=== PATIENT | female | born 1960 | race Hispanic/Latino ===

== ENCOUNTER 2017-10-05 05:24 | Inpatient (IN) | payer SELFPAY ==
--- NOTE | 2017-10-05 06:29 | Emergency Department Report ---
ED Neuro Deficit HPI - General Chief Complaint: Weakness Stated Complaint: L SIDE WEAKNESS Time Seen by Provider: 10/05/17 06:23 Source: patient Mode of arrival: Stretcher Limitations: No Limitations - History of Present Illness Initial Comments: I was informed of this patient's presentation at 06:17. I called a code stroke. Radiologist report occurred at 6:45. This is a 57 year old apparently bipolar patient who appears to be somewhat agitated and paranoid. She does not want to answer routine questions about her history of the present illness. She strangely acts very defensive regarding questions about her past medical history as well. In any case he is an inpatient at [facility]. [facility] she [facility]. She states that she has been in the hospital several times but is very reluctant to tell me why. She states that she has a history of "vasculitis". 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 She does not know what type of vasculitis she has. She gets very annoyed when she is asked for detail about her present illness or past medical history. I think some of the root cause may be a bipolar disorder with paranoid features. However, I do not know her exact psychiatric diagnosis or the reason why she is an inpatient at [facility]. The history that I have been able to obtain is that the patient woke up with " my left side drawing up". She describes facial drooping and left-sided weakness. She also states that she had pain in the back of her neck which radiated up to her head. She is not complaining of headache now. The patient woke up with said symptoms. She states that an hour later she was able to get the attention of a nurse and looked at her watch and found it to be 3 AM. However she is certain that she had her symptoms for one hour she states because she was checked every 15 minutes 4 times prior after her symptoms had already begun. The patient states "I was able to walk in here". -: During the night Location: left face, left arm, left leg Presenting Symptoms: Present: Weak/Paralyzed One Side History of same: No (very poor historian states "3 silent strokes") Place: other ([facility]) Severity: moderate Quality: weak Improves With: none Worsens With: none On Anticoagulants: No Context: other Associated Symptoms: denies other symptoms, headaches (neck pain posterior) Treatments Prior to Arrival: none - Related Data Allergies/Adverse Reactions: Allergies Allergy/AdvReac Type Severity Reaction Status Date / Time ketorolac Allergy Unknown Verified 10/05/17 06:13 ED Review of Systems ROS: Stated complaint: L SIDE WEAKNESS Other details as noted in HPI Constitutional: denies: chills, fever Eyes: denies: eye pain, eye discharge, vision change ENT: denies: ear pain, throat pain Respiratory: denies: cough, shortness of breath, wheezing Cardiovascular: denies: chest pain, palpitations Endocrine: no symptoms reported Gastrointestinal: denies: abdominal pain, nausea, diarrhea Genitourinary: denies: urgency, dysuria, discharge Musculoskeletal: as per HPI. denies: back pain, joint swelling, arthralgia Skin: denies: rash, lesions Neurological: as per HPI, weakness. denies: paresthesias, abnormal gait Psychiatric: as per HPI (patient is very guarded concerning her psychiatric diagnosis) Hematological/Lymphatic: denies: easy bleeding, easy bruising ED Past Medical Hx - Past Medical History Previous Medical History?: Yes Hx CVA: Yes Hx COPD: Yes Additional medical history: Vasculitis - Surgical History Past Surgical History?: Yes Additional Surgical History: Cyst removal from chest - Social History Smoking Status: Former Smoker ED Neuro Physical Exam - General Limitations: Other (lack of cooperation) General appearance: alert, in no apparent distress Suspected Stroke: Yes (possible) - Head Head exam: Present: atraumatic, normocephalic - Eye Eye exam: Present: normal appearance, PERRL, EOMI. Absent: scleral icterus - ENT ENT exam: Present: mucous membranes moist, other (no facial asymmetry) - Neck Neck exam: Present: normal inspection. Absent: tenderness, meningismus - Respiratory Respiratory exam: Present: normal lung sounds bilaterally. Absent: respiratory distress - Cardiovascular Cardiovascular Exam: Present: regular rate, normal rhythm. Absent: systolic murmur, diastolic murmur, rubs, gallop - GI/Abdominal GI/Abdominal exam: Present: soft, normal bowel sounds. Absent: distended, tenderness, guarding, rebound, rigid - Extremities Exam Extremities exam: Present: normal inspection, normal capillary refill. Absent: calf tenderness - Back Exam Back exam: Present: normal inspection. Absent: CVA tenderness (R), CVA tenderness (L) - Neurological Exam Neurological exam: Present: alert, oriented X3, CN II-XII intact, motor sensory deficit (left sided drift. However see note and course) - NIHSS Assessment Interval: Baseline 1a. Level of Consciousness: alert 1b. LOC Questions: answers correctly 1c. LOC Commands: performs tasks correctly 2. Best Gaze: normal 3. Visual: no visual loss 4. Facial Palsy: normal symmetrical movement 5b. Motor Arm Right: no drift 5a. Motor Arm Left: drift 6a. Motor Leg Left: drift 6b. Motor Leg Right: no drift 7. Limb Ataxia: absent 8. Sensory: normal 9. Best Language: no aphasia 10. Dysarthria: normal 11. Extinction/Inattention: no abnormality Total Score: 2 Stroke Severity: Minor Stroke - Psychiatric Psychiatric exam: Present: depressed, agitated (angry) - Skin Skin exam: Present: warm, dry, intact, normal color. Absent: rash ED Course Vital Signs 10/05/17 10/05/17 10/05/17 05:38 05:45 05:50 Temperature 98.7 F Pulse Rate 89 Respiratory 17 Rate Blood Pressure 166/94 175/116 O2 Sat by Pulse 93 91 95 Oximetry 10/05/17 10/05/17 10/05/17 06:00 06:15 06:36 Temperature Pulse Rate Respiratory Rate Blood Pressure 166/94 159/92 159/92 O2 Sat by Pulse 89 94 93 Oximetry 10/05/17 10/05/17 10/05/17 06:52 07:00 07:02 Temperature Pulse Rate 62 Respiratory Rate Blood Pressure 166/94 147/93 O2 Sat by Pulse 96 95 Oximetry 10/05/17 07:15 Temperature Pulse Rate 82 Respiratory 17 Rate Blood Pressure 150/90 O2 Sat by Pulse 98 Oximetry - Reevaluation(s) Reevaluation #1: I did follow the patient to CT. I observed her motor strength getting up and off the gurney. She moved her left side perfectly well as far as I could observe with no apparent motor asymmetry. However, when she returned to the emergency department and I performed the neurological exam she very poorly cooperated and appeared to have some possible left-sided weakness. However on test of drift the patient wouldn't hold her left leg up in extension only with very good tone and really no definite lower extremity drift was present. On upper extremity testing she was poorly cooperative and I couldn't rule out drift. Therefore her NIHSS is 1 or 2. Her neurological picture is complicated by her psychiatric disorder and perhaps a "vasculitis". She is more than 4-1/2 hours after x-ray interpretation of her CT which was normal per radiologist. She is in eligible for TPA due to the variability in her symptoms and the fact that she is outside the window of opportunity. Not withstanding this I have ordered urgent MRI studies. Differential diagnosis includes vasculitis, stroke and psychogenic neurological syndrome. Further evaluation per hospitalist staff. 10/05/17 07:56 - Lab Data Result diagrams: 10/05/17 06:40 10/05/17 06:40 Lab Results 10/05/17 10/05/17 10/05/17 Range/Units 06:40 06:40 06:40 WBC 8.4 (4.5-11.0) K/mm3 RBC 4.68 (3.65-5.03) M/mm3 Hgb 16.1 H (10.1-14.3) gm/dl Hct 48.7 H (30.3-42.9) % MCV 104 H (79-97) fl MCH 34 H (28-32) pg MCHC 33 (30-34) % RDW 16.2 H (13.2-15.2) % Plt Count 137 L (140-440) K/mm3 PT 12.7 (12.2-14.9) Sec. INR 0.91 (0.87-1.13) APTT 38.4 H (24.2-36.6) Sec. Thrombin Time 15.3 (15.1-19.6) Sec. Sodium 141 (137-145) mmol/L Potassium 4.0 (3.6-5.0) mmol/L Chloride 99.2 (98-107) mmol/L Carbon Dioxide 27 (22-30) mmol/L Anion Gap 19 mmol/L BUN 12 (7-17) mg/dL Creatinine 0.6 L (0.7-1.2) mg/dL Estimated GFR > 60 ml/min BUN/Creatinine Ratio 20 % Glucose 107 H (65-100) mg/dL POC Glucose (70-105) Calcium 9.2 (8.4-10.2) mg/dL Total Creatine Kinase 45 (30-135) units/L CK-MB (CK-2) 1.9 (0.0-4.0) ng/mL CK-MB (CK-2) Rel Index 4.2 H (0-4) Troponin T < 0.010 (0.00-0.029) ng/mL Plasma/Serum Alcohol (0-0.07) % 10/05/17 10/05/17 Range/Units 06:40 07:01 WBC (4.5-11.0) K/mm3 RBC (3.65-5.03) M/mm3 Hgb (10.1-14.3) gm/dl Hct (30.3-42.9) % MCV (79-97) fl MCH (28-32) pg MCHC (30-34) % RDW (13.2-15.2) % Plt Count (140-440) K/mm3 PT (12.2-14.9) Sec. INR (0.87-1.13) APTT (24.2-36.6) Sec. Thrombin Time (15.1-19.6) Sec. Sodium (137-145) mmol/L Potassium (3.6-5.0) mmol/L Chloride (98-107) mmol/L Carbon Dioxide (22-30) mmol/L Anion Gap mmol/L BUN (7-17) mg/dL Creatinine (0.7-1.2) mg/dL Estimated GFR ml/min BUN/Creatinine Ratio % Glucose (65-100) mg/dL POC Glucose 92 (70-105) Calcium (8.4-10.2) mg/dL Total Creatine Kinase (30-135) units/L CK-MB (CK-2) (0.0-4.0) ng/mL CK-MB (CK-2) Rel Index (0-4) Troponin T (0.00-0.029) ng/mL Plasma/Serum Alcohol < 0.01 (0-0.07) % - EKG Data -: EKG Interpreted by Al EKG shows normal: sinus rhythm, axis, intervals, QRS complexes, ST-T waves Rate: normal Interpretation: no acute changes, other - Radiology Data Radiology results: report reviewed (no acute findings) - Thrombolytic Inclusion/Exclusion Thrombolytic Exclusion Criteria: Symptom Onset > 3 Hours (greater than 4.5 hours ) Critical care attestation.: If time is entered above; I have spent that time in minutes in the direct care of this critically ill patient, excluding procedure time. ED Disposition Clinical Impression: Focal neurological deficit, Neck pain, Psychiatric disorder Disposition: OP ADMIT IP TO THIS HOSP Is pt being admited?: Yes Does the pt Need Aspirin: Yes Condition: Stable Referrals: JULIO BREEN MD [Primary Care Provider] - 3-5 Days Time of Disposition: 08:04
--- NOTE | 2017-10-05 06:51 | Cat Scan Report ---
FINAL REPORT EXAM: CT HEAD/BRAIN WO CON HISTORY: Stroke symptoms TECHNIQUE: CT imaging acquired through the head without intravenous contrast. Transaxial reformations are provided. PRIORS: None. FINDINGS: The ventricles, cisterns and sulci are within normal limits. No intraparenchymal or extra-axial mass, hemorrhage, or mass effect. Peña and white-matter differentiation is within normal limits for patient age. Normal spherical shape of the globes. There is mucosal thickening within the sphenoid sinuses. No other significant abnormality involving the imaged portions of the paranasal sinuses and mastoid air cells. No skull or facial fracture visualized. IMPRESSION: No acute intracranial abnormality. Findings were conveyed to Dr. Cuadra at 0544 central Time on 10/05/2017 immediately following the examination.
[2017-10-05 06:53] LABS: Hematocrit 48.7 % (30.3-42.9); Hemoglobin 16.1 gm/dl (10.1-14.3); Mean Corpuscular HGB Conc 33 % (30-34); Mean Corpuscular Hemoglobin 34 pg (28-32); Mean Corpuscular Volume 104 fl (79-97); Platelet Count 137 K/mm3 (140-440); Red Blood Count 4.68 M/mm3 (3.65-5.03); Red Cell Distribution Width 16.2 % (13.2-15.2)
[2017-10-05 07:18] LABS: INR 0.91 (0.87-1.13)
[2017-10-05 07:19] LABS: Partial Thromboplastin Time 38.4 Sec. (24.2-36.6)
[2017-10-05 07:23] LABS: Creatine Kinase MB 1.9 ng/mL (0.0-4.0)
[2017-10-05 07:24] LABS: BUN/Creatinine Ratio 20; Blood Urea Nitrogen 12 mg/dL (7-17); Calcium 9.2 mg/dL (8.4-10.2); Hemolysis Index 9
[2017-10-05 07:26] LABS: Thrombin Time 15.3 Sec. (15.1-19.6)
[2017-10-05 07:50] LABS: Alanine Aminotransferase 60 units/L (7-56)
[2017-10-05 07:51] LABS: Bilirubin,Direct < 0.2 mg/dL (0-0.2)
[2017-10-05 08:02] LABS: Anisocytosis 1+; Band Neutrophils # (Manual) 0.1 K/mm3; Basophils % (Manual) 0 % (0.0-1.8); Eosinophils % (Manual) 0 % (0.0-4.3); Platelet Estimate Consistent w Auto; Total Cells Counted 100
[2017-10-05] MEDS ORDERED: ATIVAN IV ONE (08:02)
[2017-10-05] MEDS ORDERED: MILK OF MAGNESIA PO PRN (08:52)
[2017-10-05] MEDS ORDERED: PHENERGAN PR PRN (08:52)
[2017-10-05] MEDS ORDERED: REGLAN PO PRN (08:52)
[2017-10-05] MEDS ORDERED: ZOFRAN IV PRN (08:52)
[2017-10-05] MEDS ORDERED: SODIUM CHLORIDE FLUSH SYRINGE 10 ML IV PRN (08:52)
[2017-10-05] MEDS ORDERED: TYLENOL PO PRN (08:52)
[2017-10-05] MEDS ORDERED: DULCOLAX PR PRN (08:52)
--- NOTE | 2017-10-05 08:57 | History and Physical Report ---
History of Present Illness Date of examination: 10/05/17 Chief complaint: Stroke like symptoms History of present illness: This is a 57 y/o female with h/o alcohol abuse, depression and anxiety presented with ER from outside psych facility with c/o leftsided weakness and elevated BP. According to the family patient was recently admitted to [facility] for suicidal ideation and alcohol abuse. She was treated there and medically cleared to transfer to a psych facility just yesterday. Around 3 am she c/o left sided weakness, and she sent to [facility] for possible stroke eval. patient appears very anxious and depressed during the encounter and states she can't move her lower extremities. Also c/o left sided weakness but was able to lift her left hand but not the left leg. her speech was fluent but very poor historian. States she has been very depressed since her on 31 december last year. She has been unemployed since 2014 because of her "medical illness". She was drinking heavily before going to [facility] and reprted to call her sister to say 'Good-bye". In the ER her presenting BP 166/94, CT head showed no acute process. She denies any chest pain or SOB. She will be admitted for further evaluation and management. Past medical History: h/o TIA/CVA, HTN, alcohol abuse, anxiety/depression Past surgical History: None Social History: Lives alone, + drinking and denies any elicit drug abuse. Family History: Significant for HTN Review of System: Constitutional: no fever, no chills, no weight loss Ears, eyes, nose, mouth and throat: no nasal congestion, no nasal discharge, no sinus pressure, no vision change, no red eye. Neck: No neck pain or rigidity. Cardiovascular: No chest pain, no orthopnea, no palpitations, no leg swelling Respiratory: No shortness of breath, no cough, no congestion, no wheezing Gastrointestinal: no abdominal pain, no nausea, no vomiting Genitourinary : no dysuria, no hematuria Musculoskeletal: no joint swelling or muscle ache Integumentary: no rash, no pruritis Neurological: + parathesias and + numbness on b/l LE, no tingling Endocrine: no cold or heat intolerance, no polyuria or polydipsia Hematologic/Lymphatic: no easy bruising, no easy bleeding, no gland swelling Allergic/Immunologic: no urticaria, no angioedema. Medications and Allergies Allergies Allergy/AdvReac Type Severity Reaction Status Date / Time ketorolac Allergy Unknown Verified 10/05/17 06:13 Exam - Physical Exam Narrative exam: GENERAL: well-developed obese WF lying on bed appeared to be in mild discomfort , anxious, with tearful eyes. HEENT: Normocephalic. Atraumatic. No conjunctival congestion or icterus. Patient has moist mucous membranes. NECK: Supple. Trachea midline. CHEST/LUNGS: Clear to auscultated bilaterally, breathing nonlabored. No wheezes crackles or rhonchi. HEART/CARDIOVASCULAR: Regular in rate and rhythm. S1 and S2 positive. ABDOMEN: Abdomen is soft, nontender. Patient has normal bowel sounds. SKIN: There is no rash. Warm and dry. NEURO: Follows command. left UE weakness, B/L LE weakness with intact reflex MUSCULOSKELETAL: No joint effusion or tenderness. EXTRIMITY: No edema, no cyanosis or clubbing. PSYCH: depressed. - Constitutional Vitals: Temp Pulse Resp BP Pulse Ox 97.7 F 79 15 170/95 97 10/05/17 07:42 10/05/17 07:42 10/05/17 07:42 10/05/17 07:42 10/05/17 07:42 Results - Labs CBC & Chem 7: 10/05/17 06:40 10/05/17 06:40 Labs: Abnormal lab results 10/05/17 10/05/17 10/05/17 Range/Units 06:40 06:40 06:40 Hgb 16.1 H (10.1-14.3) gm/dl Hct 48.7 H (30.3-42.9) % MCV 104 H (79-97) fl MCH 34 H (28-32) pg RDW 16.2 H (13.2-15.2) % Plt Count 137 L (140-440) K/mm3 Lymphocytes % (Manual) 10.0 L (13.4-35.0) % Monocytes % (Manual) 19.0 H (0.0-7.3) % Lymphocytes # (Manual) 0.8 L (1.2-5.4) K/mm3 Monocytes # (Manual) 1.6 H (0.0-0.8) K/mm3 APTT 38.4 H (24.2-36.6) Sec. Creatinine 0.6 L (0.7-1.2) mg/dL Glucose 107 H (65-100) mg/dL AST (5-40) units/L ALT (7-56) units/L CK-MB (CK-2) Rel Index 4.2 H (0-4) 10/05/17 Range/Units 06:40 Hgb (10.1-14.3) gm/dl Hct (30.3-42.9) % MCV (79-97) fl MCH (28-32) pg RDW (13.2-15.2) % Plt Count (140-440) K/mm3 Lymphocytes % (Manual) (13.4-35.0) % Monocytes % (Manual) (0.0-7.3) % Lymphocytes # (Manual) (1.2-5.4) K/mm3 Monocytes # (Manual) (0.0-0.8) K/mm3 APTT (24.2-36.6) Sec. Creatinine (0.7-1.2) mg/dL Glucose (65-100) mg/dL AST 61 H (5-40) units/L ALT 60 H (7-56) units/L CK-MB (CK-2) Rel Index (0-4) - Imaging and Cardiology CT Scan - head: report reviewed (no acute intracranial process) Assessment and Plan Possible acute CVA vs TIA - - We will admit the patient to remote telemetry - We'll place on aspirin and statin, will consult neurology - CT scan of the head obtained in the ER and shows no acute process - We will get MRI of the head, carotid Doppler, 2-D echocardiogram - We will also get hemoglobin A1c level and fasting lipid panel - Allow permissive hypertension, will hold BP meds if patient is taking any at home - Consult PTOT and speech therapist - Keep the patient nothing by mouth for now, cardiac diet if passed swallow study - IV hydration with D5 normal saline, - monitor blood glucose and place on sliding scale of insulin, as patient will be nothing by mouth and on D5 - Further management will be based on pending lab results and imaging studies Depression and anxiety - consult psych, place 1013 with sitter h/o Old CVA - cont aspirin and statin HTN, uncontrolled - will allow permissive HTN - resume BP meds from tomorrow - request medical records from [facility] Alcohol abuse - monitor for withdrawal, last drink was about a week ago - We'll place on GI prophylaxis to avoid stress ulcer - Place on DVT prophylaxis
[2017-10-05] MEDS ORDERED: NACL 0.9% 1000 ML 1,000 ML IV SCH (09:00)
--- NOTE | 2017-10-05 09:26 | XRay Report ---
AP CHEST: HISTORY: Hypertension AP view of the chest demonstrates a normal mediastinal and cardiac contour with clear lungs and normal bony and soft tissue structures. IMPRESSION: Unremarkable AP chest.
[2017-10-05] MEDS: PEPCID PO SCH ×2 (09:38→22:58)
--- NOTE | 2017-10-05 11:44 | Magnetic Resonance Report ---
MRI OF THE BRAIN WITHOUT CONTRAST: HISTORY: Left sided weakness, stroke PROCEDURE: Multiplanar, multisequence MR imaging of the brain without IV contrast was performed. FINDINGS: Compared to the CT head dated 10/05/17. There is no evidence for diffusion restriction on today's exam. A chronic cortical infarct in the right posterior frontal lobe measures 3.1 x 1.1 cm in axial plane. There are 2 focal chronic infarcts measuring less than 1 cm in the inferior left cerebellum. There is also a chronic focal infarct measuring less than 1 cm in the inferior right cerebellum. Mild to moderate nonspecific chronic white matter changes are noted bilaterally. There is no evidence for hemorrhage, mass or extra-axial fluid collection. The midline structures are central. The basal cisterns are patent. Normal ventricular size. The orbital cavities and sella turcica demonstrate no abnormality. There is moderate mucosal thickening in the right sphenoid sinus. The remaining visualized paranasal sinuses and mastoid air cells are well aerated. IMPRESSION: No acute intracranial process is identified. Chronic infarcts as described above. Chronic white matter changes. Chronic right sphenoid sinusitis.
--- NOTE | 2017-10-05 11:45 | Magnetic Resonance Report ---
MRA HEAD WITHOUT CONTRAST HISTORY: Left sided weakness, stroke. [id number] imaging with MIP reformations of the quinault of García is submitted. NASCET criteria were utilized. The arteries appear widely patent and free of hemodynamically significant stenosis, aneurysm or dissection. IMPRESSION: Unremarkable MRA head.
[2017-10-05 14:09] LABS: Bacteria,Urine 1+ /HPF (Negative); Bilirubin,Urine NEG (Negative); Blood,Urine NEG (Negative); Color,Urine Yellow (Yellow); Mucus,Urine FEW /HPF; Urobilinogen,Urine < 2.0 mg/dL (<2.0)
[2017-10-05 14:16] LABS: Amphetamine Screen,Urine PRESUMPTIVE NEGATIVE; Cannabinoid Screen,Urine PRESUMPTIVE NEGATIVE; Cocaine Screen,Urine PRESUMPTIVE NEGATIVE; Methadone Screen,Urine PRESUMPTIVE NEGATIVE; Opiate Screen,Urine PRESUMPTIVE NEGATIVE
[2017-10-05 14:37] LABS: Benzodiazepines Screen,Urine PRESUMPTIVE POSITIVE
[2017-10-06 07:26] LABS: Chol/HDL Ratio 5.36 %
--- NOTE | 2017-10-06 10:11 | History and Physical Report ---
History of Present Illness Date of examination: 10/06/17 Date of admission: 10/05/17 08:52 FOCUSED NEUROLOGY CONSULTATION NOTE CC: I am asked to see this 57 F for possible stroke which occured yesterday. HPI: According to ED notes, the patient was admitted yesterday from [facility] yesterday, but in talking with Dr Marroquin just now who has spoken with the family, the patient was in [facility] for suicidal ideation that she told her sister about, having awoken at 3 am with her "left side drawing up" and a "left facial droop" She carries a diagnosis of Depression, but little else is known about her including her official psychiatric diagnoses or meds. She has apparently been admitted to [facility] on a number of occasions in the past. From the ED note here, the patient stated that she awoke at "3:00 AM" with the left sided sx as above as well as a "pain in the back of my neck that went up into my head", "finally got the attention of a nurse after an hour" and was transferred here. In the ED she was extremely reluctant and defensive about relating much about her history but did relate that she had had "three strokes in the past"... "due to chemo Rx" ...had "vasculits"... and stated "I walked in here". Initial NIHSS was 2, she was hypertensive, a head CT was negative for any acute changes (images reviewed) and a head MRI showed some volume loss, a remote infarct in the posterior right frontal lobe, and remote small infarcts in both cerebellar hemispheres and another one in the right inferior cerebellar hemisphere. Her neuro exam became equivocal after her imaging studies with repeat NIHSS of 1 - 2. With the low scores, equivocal findings, and being outside a 4.5 hr window since onset of sx, she was not felt to be a tPA candidate. She denied any headache on admission. ROS: she denied any vertigo or dizziness, current headache, unilat visual sx, double vision, of difficulty with speech. she denied any falls. An 11 point ROS was negative. NEURO EXAM: MS: She is found in an ED hallway bed space 11, right next to a room with a teenager screaming and yelling and throwing things, surrounded by security personnel somewhat tremulous, asking for her sister to be called. She is alert , cooperative, and her speech is low volume, somewhat tremulous, but fluent and without errors. She follows commands well at this time. CN II - 12 nl. Full EOM without nystagmus, pupils both 4 mm diam and reactive to bright light stim MOT: nl strength all four extrem prox and distally 5/5 to resistance testing SENS: denies loss to touch all four extrem and face bilat CEREB: fnf nl bilat DTRs: 1+ and symm prox and distally arms and legs, both great toes downgoing to plantar stim bilat. GAIT: not tested due to fall risk DX IMP: 1. Hx mild/minimal left sided weakness secondary to ? some metabolic insult ( medication excess?) "smoking out" the sx of the remote right frontal lobe infarct vs TIA. NO new stroke. 2. Multiple remote cerebral infarcts by head MRI 3. Psychiatric diagnosis - depression/ anxiety - unclear, with unknown meds at this time 4. HTN RECC: 1. Get "Official" psych dxs from [facility] + list of her current meds 2. Get carotid ultsound and Echo to complete TIA work up. 3. Go from there. Call as needed. Discussed with Dr. Cara Leblanc MD Medications and Allergies Allergies Allergy/AdvReac Type Severity Reaction Status Date / Time ketorolac Allergy Unknown Verified 10/05/17 06:13 Active Meds: Active Medications Acetaminophen (Tylenol) 650 mg PO Q4H PRN PRN Reason: Pain, Mild (1-3) Bisacodyl (Dulcolax) 10 mg AR QDAY PRN PRN Reason: Constipation Famotidine (Pepcid) 20 mg PO BID FRANKY Last Admin: 10/05/17 22:58 Dose: Not Given Sodium Chloride (Nacl 0.9% 1000 Ml) 1,000 mls @ 75 mls/hr IV DIRECT FRANKY Magnesium Hydroxide (Milk Of Magnesia) 30 ml PO Q4H PRN PRN Reason: Constipation Metoclopramide HCl (Reglan) 10 mg PO Q6H PRN PRN Reason: Nausea And Vomiting Ondansetron HCl (Zofran) 4 mg IV Q8H PRN PRN Reason: N/V unrelieved by Reglan Promethazine HCl (Phenergan) 25 mg AR Q6H PRN PRN Reason: Nausea And Vomiting Sodium Chloride (Sodium Chloride Flush Syringe 10 Ml) 10 ml IV PRN PRN PRN Reason: LINE FLUSH Physical Examination - Vital Signs Vital Signs: Vital Signs Pulse Ox 93 10/05/17 05:38 Results - Laboratory Findings CBC and BMP: 10/05/17 06:40 10/05/17 06:40 Abnormal Lab Findings: Abnormal Labs 10/05/17 10/05/17 10/05/17 06:40 06:40 06:40 Hgb 16.1 H Hct 48.7 H MCV 104 H MCH 34 H RDW 16.2 H Plt Count 137 L Lymphocytes % (Manual) 10.0 L Monocytes % (Manual) 19.0 H Lymphocytes # (Manual) 0.8 L Monocytes # (Manual) 1.6 H APTT 38.4 H Creatinine 0.6 L Glucose 107 H AST ALT CK-MB (CK-2) Rel Index 4.2 H Cholesterol LDL Cholesterol Direct HDL Cholesterol 10/05/17 10/06/17 06:40 06:37 Hgb Hct MCV MCH RDW Plt Count Lymphocytes % (Manual) Monocytes % (Manual) Lymphocytes # (Manual) Monocytes # (Manual) APTT Creatinine Glucose AST 61 H ALT 60 H CK-MB (CK-2) Rel Index Cholesterol 204 H LDL Cholesterol Direct 144 H HDL Cholesterol 38 L
[2017-10-06] MEDS: BABY ASPIRIN PO SCH (12:23)
[2017-10-06] MEDS: COREG PO SCH ×2 (12:23→22:22)
[2017-10-06] MEDS: PEPCID PO SCH ×2 (12:23→22:23)
[2017-10-06] MEDS: NORVASC PO SCH (12:23)
--- NOTE | 2017-10-06 14:06 | Progress Note ---
Assessment and Plan Possible TIA - -cont to monitor at remote telemetry - on aspirin and statin, consulted neurology - CT scan of the head obtained in the ER and shows no acute process - no acute cva on MRI of the head, will follow carotid Doppler, 2-D echocardiogram - Consulted PTOT and speech therapist - on cardiac diet h/o Depression and anxiety - consulted psych, placed on 1013 with sitter - Started Prozac 20 mg PO Daily for depression. HTN, uncontrolled - Place on norvasc, coreg and as needed hydralazine iv - requested medical records from [facility] Alcohol abuse - monitor for withdrawal, last drink was about a week ago - place on librium per protocol h/o proor CVA - cont aspirin, statin - We'll place on GI prophylaxis to avoid stress ulcer - Place on DVT prophylaxis Brief history: This is a 57-year-old obese white female with a history of anxiety depression and alcohol abuse sent from outside psych facility with strokelike symptoms ( left-sided weakness ) and uncontrolled blood pressure. Radiological test: CT head without contrast: No acute intracranial process MRI/MRA of the head: No acute intracranial process. A chronic cortical infarct in the right posterior frontal lobe, no focal chronic infarct in the inferior left cerebellum, chronic focal infarct in the inferior right cerebellum. Patient also has chronic white matter changes and chronic right spinal sinusitis. Hospitalist Physical exam: GENERAL: well-developed and obese white female lying on bed appeared to be in no discomfort. HEENT: Normocephalic. Atraumatic. No conjunctival congestion or icterus. Patient has moist mucous membranes. NECK: Supple. Trachea midline. CHEST/LUNGS: Clear to auscultated bilaterally, breathing nonlabored. No wheezes crackles or rhonchi. HEART/CARDIOVASCULAR: Regular in rate and rhythm. S1 and S2 positive. ABDOMEN: Abdomen is soft, nontender. Patient has normal bowel sounds. SKIN: There is no rash. Warm and dry. NEURO: No focal motor deficit. Follows command. MUSCULOSKELETAL: No joint effusion or tenderness. EXTRIMITY: No edema, no cyanosis or clubbing. PSYCH: Cooperative. Subjective Date of service: 10/06/17 Interval history: Patient seen and examined. Medical records and medication list reviewed. No acute event overnight noted by the RN. Patient denies any chest pain or difficulty breathing. Patient is tolerating diet. Discussed plan of care at bedside with patient and patient's son by phone Objective - Constitutional Vitals: Vital Signs - 12hr 10/06/17 10/06/17 09:30 12:00 Temperature 98.7 F Pulse Rate 82 86 Respiratory 14 16 Rate Blood Pressure 145/99 148/92 [Left] O2 Sat by Pulse 94 94 Oximetry - Labs CBC & Chem 7: 10/05/17 06:40 10/05/17 06:40 Labs: Abnormal lab results 10/06/17 Range/Units 06:37 Cholesterol 204 H (50-199) mg/dL LDL Cholesterol Direct 144 H (50-130) mg/dL HDL Cholesterol 38 L (40-59) mg/dL
--- NOTE | 2017-10-06 15:45 | Progress Note ---
Subjective - Reason for Consult Consult date: 10/06/17 Reason for consult: Psychiatry Follow-up - Chief Complaint Chief complaint: Stroke like symptoms Mental Status Exam - Vital signs Last Vital Signs Temp 98.7 F 10/06/17 09:30 Pulse 86 10/06/17 12:00 Resp 16 10/06/17 12:00 BP 148/92 10/06/17 12:00 Pulse Ox 94 10/06/17 12:00 - Exam Narrative exam: MSE: Appearance: calm, cooperative Behavior: regular eye contact Speech: regular rate and tone Mood: "depressed" Affect: congruent to mood Thought Process: circumstantial Thought Content: denies HI's and VH's, cannot confirm or deny SI's Motor Activity: lying in bed Cognition: A/O x 3 Insight: variable Judgment: variable
--- NOTE | 2017-10-06 15:46 | Consultation ---
History of Present Illness - Reason for Consult Consult date: 10/06/17 Reason for consult: Mental Health Evaluation Requesting physician: PATRICIO DEMARCO - Chief Complaint Chief complaint: "I am depressed" - History of Present Psychiatric Illness 57 y.o. whit female presenting from [facility] for left sided weakness. Today the patient is calm during the assessment. She stated that she was a patient at a mental health facility recently. She stated that she was experiencing some left sided weakness and was transferred to [facility]. She stated having a hx of depression. She stated that her depression has exacerbated since the of her a yr ago. She stated having a hard time functioning "day to day" since his . She could not confirm or deny being suicidal when asked. She stated feeling sad, hopeless, and helpless. She denies HI's and AVH' s. She denies erratic sleep and a poor appetite. She denies recreational drug use. She stated that her alcohol consumption had increased the past yr. She stated that she drink alcohol 3 to 4 days a week. Medications and Allergies Allergies Allergy/AdvReac Type Severity Reaction Status Date / Time ketorolac Allergy Unknown Verified 10/05/17 06:13 Home Medications Medication Instructions Recorded Confirmed Last Taken Type ALPRAZolam [Xanax TAB] 1 mg PO TID PRN 10/07/17 10/07/17 Unknown History Escitalopram [Lexapro] 10 mg PO QDAY 10/07/17 10/07/17 Unknown History Furosemide [Lasix TAB] 40 mg PO BID 10/07/17 10/07/17 Unknown History Lansoprazole [Prevacid] 30 mg PO QDAY 10/07/17 10/07/17 Unknown History oxyCODONE /ACETAMINOPHEN [Percocet 1 tab PO BID 10/07/17 10/07/17 Unknown History 5/325] predniSONE [Deltasone] 5 mg PO QDAY 10/07/17 10/07/17 Unknown History Active Meds: Active Medications Acetaminophen (Tylenol) 650 mg PO Q4H PRN PRN Reason: Pain, Mild (1-3) Amlodipine Besylate (Norvasc) 10 mg PO QDAY [facility] Last Admin: 10/06/17 12:23 Dose: 10 mg Aspirin (Baby Aspirin) 81 mg PO QDAY [facility] Last Admin: 10/06/17 12:23 Dose: 81 mg Atorvastatin Calcium (Lipitor) 40 mg PO QHS [facility] Bisacodyl (Dulcolax) 10 mg [place] QDAY PRN PRN Reason: Constipation Carvedilol (Coreg) 6.25 mg PO BID [facility] Last Admin: 10/06/17 12:23 Dose: 6.25 mg Enoxaparin Sodium (Lovenox) 40 mg SUB-Q QDAY@2200 FRANKY Famotidine (Pepcid) 20 mg PO BID [facility] Last Admin: 10/06/17 12:23 Dose: 20 mg Hydralazine HCl (Apresoline) 5 mg IV Q30MIN PRN PRN Reason: HTN SYS>180 JUAN MANUEL>100 Sodium Chloride (Nacl 0.9% 1000 Ml) 1,000 mls @ 75 mls/hr IV DIRECT FRANKY Magnesium Hydroxide (Milk Of Magnesia) 30 ml PO Q4H PRN PRN Reason: Constipation Metoclopramide HCl (Reglan) 10 mg PO Q6H PRN PRN Reason: Nausea And Vomiting Ondansetron HCl (Zofran) 4 mg IV Q8H PRN PRN Reason: N/V unrelieved by Reglan Promethazine HCl (Phenergan) 25 mg [place] Q6H PRN PRN Reason: Nausea And Vomiting Sodium Chloride (Sodium Chloride Flush Syringe 10 Ml) 10 ml IV PRN PRN PRN Reason: LINE FLUSH Past psychiatric history - Past Medical History Past Surgical History: No surgical history - past Psychiatric treatment and history Psych: Depression psychiatric treatment history: Multiple inpatient pst settings. Denies a fam psy hx. Mental Status Exam - Vital signs Last Vital Signs Temp 98.7 F 10/06/17 09:30 Pulse 86 10/06/17 12:00 Resp 16 10/06/17 12:00 BP 148/92 10/06/17 12:00 Pulse Ox 94 10/06/17 12:00 - Exam Narrative exam: MSE: Appearance: calm Behavior: regular eye contact Speech: regular rate with low tone Mood: "depressed" Affect: flat Thought Process: circumstantial Thought Content: denies HI's and VH's, cannot confirm or deny SI's Motor Activity: lying in bed, mild tremors Cognition: A/O x 3 Insight: variable Judgment: variable Results Result Diagrams: 10/05/17 06:40 10/05/17 06:40 Abnormal lab results 10/06/17 Range/Units 06:37 Cholesterol 204 H (50-199) mg/dL LDL Cholesterol Direct 144 H (50-130) mg/dL HDL Cholesterol 38 L (40-59) mg/dL All other labs normal. Assessment and Plan Assessment and plan: Impression: MDD, Severe Type. Hx of Alcohol Use DO. Today the patient is calm during the assessment. The patient cannot confirm or deny SI's. Mild tremors noted during assessment. DDx: R/O Bipolar DO Recommendation/Plan: Continue 1013 with placement to inpatient psy services once medically clear. Start Prozac 20 mg PO Daily for depression. Discussed possible suicidality/medication induced pan with patient reference Prozac. Hospitalist to address the patient's mild tremors. Neuro is following patient.
[2017-10-06] MEDS ORDERED: LIBRIUM PO PRN (18:33)
[2017-10-06] MEDS: LOVENOX SUB-Q SCH (22:23)
[2017-10-07] MEDS: LIBRIUM PO PRN ×2 (00:07→04:13)
[2017-10-07] MEDS: PROzac PO SCH (09:40)
[2017-10-07] MEDS: PEPCID PO SCH ×2 (09:41→21:02)
[2017-10-07] MEDS: BABY ASPIRIN PO SCH (09:41)
[2017-10-07] MEDS: COREG PO SCH ×2 (09:41→21:02)
[2017-10-07] MEDS: NORVASC PO SCH (09:41)
[2017-10-07] MEDS: HCTZ PO SCH (10:42)
[2017-10-07] MEDS ORDERED: GEODON IM ONE ×2 (11:46)
--- NOTE | 2017-10-07 14:25 | Progress Note ---
Subjective - Reason for Consult Consult date: 10/07/17 Reason for consult: Psychiatry Follow-up - Chief Complaint Chief complaint: "They are going to hurt me" 57 y.o. whit female presenting from [facility] for left sided weakness. Today the patient is irate during the assessment. This is a different presentation of the patient than yesterday. She is adamant that her lungs has failed and that someone is out to get her. She stated that staff is is trying to take all her blood. The patient had to be redirected several time to keep her on topic. Per collateral from her sister Celine [phone] who was at the bedside, she stated that her sister's current behavior is not like her. She stated that her sister has been declining "mentally" since the of her . The patient denies SI/HI's and AVH's. Mental Status Exam - Vital signs Last Vital Signs Temp 98.2 F 10/07/17 04:17 Pulse 94 H 10/07/17 10:00 Resp 18 10/07/17 10:00 BP 191/93 10/07/17 09:41 Pulse Ox 94 10/07/17 10:00 - Exam Narrative exam: MSE: Appearance: irate Behavior: regular eye contact Speech: regular rate with low tone Mood: agitated Affect: congruent to mood Thought Process: tangential Thought Content: denies SI/HI's and AVH's, delusional, paranoid Motor Activity: sitting up in bed Cognition: A/O x 3 Insight: poor Judgment: poor Assessment and Plan Impression: MDD, Severe Type. Hx of Alcohol Use DO. Unspecified Psychosis - Additional Dx. Today the patient is calm during the assessment. The patient is moving all her limbs on command. DDx: R/O Bipolar DO Recommendation/Plan: Continue 1013 with placement to inpatient psy services once medically clear. Continue Prozac 20 mg PO Daily for depression and Start Zyprexa 5 mg PO HS for psychosis. Discussed possible suicidality/medication induced pan with patient reference Prozac. Discussed possible metabolic side effects of Zyprexa with patient and her sister. Neuro is following patient.
--- NOTE | 2017-10-07 15:13 | Progress Note ---
Assessment and Plan Assessment and plan: This is a 57-year-old obese white female with a history of anxiety depression and alcohol abuse sent from outside psych facility with strokelike symptoms ( left-sided weakness ) and uncontrolled blood pressure Possible TIA - CVA workup was negative - Likely worsening of previous CVA due to hypertensive urgency h/o Depression and anxiety - consulted psych, placed on 1013 with sitter - Started Prozac 20 mg PO Daily for depression. - On Geodon PRN for agitation. HTN, uncontrolled - Place on norvasc, coreg, HCTZ and as needed hydralazine iv - Still uncontrolled because of agitation - requested medical records from [facility] Alcohol abuse - monitor for withdrawal, last drink was about a week ago - place on librium per protocol h/o CVA - cont aspirin, statin - We'll place on GI prophylaxis to avoid stress ulcer - Place on DVT prophylaxis . History Interval history: Patient was seen and evaluated this morning, patient was agitated and was not able to make rational decision. Patient is asking to go home. Hospitalist Physical - Physical exam Narrative exam: Not in cardiopulmonary distress. The patient is morbidly obese. Vital signs as documented. Head exam is unremarkable. No scleral icterus . Neck is without jugular venous distension, thyromegaly, or carotid bruits. Lungs are clear to auscultation. Cardiac exam reveals regular rate and Rhythm. First and second heart sounds normal. No murmurs, rubs or gallops. Abdominal exam reveals normal bowel sounds, no masses, no organomegaly and no aortic enlargement. Extremities are nonedematous and both femoral and pedal pulses are normal. [employer]: Alert and oriented 3. No focal weakness. Psychiatric: Severely agitated. - Constitutional Vitals: Temp Pulse Resp BP Pulse Ox 98.2 F 94 H 18 191/93 94 10/07/17 04:17 10/07/17 10:00 10/07/17 10:00 10/07/17 09:41 10/07/17 10:00 Results - Labs CBC & Chem 7: 10/05/17 06:40 10/05/17 06:40 Labs: Laboratory Last Values WBC 8.4 K/mm3 (4.5-11.0) 10/05/17 06:40 RBC 4.68 M/mm3 (3.65-5.03) 10/05/17 06:40 Hgb 16.1 gm/dl (10.1-14.3) H 10/05/17 06:40 Hct 48.7 % (30.3-42.9) H 10/05/17 06:40 MCV 104 fl (79-97) H 10/05/17 06:40 MCH 34 pg (28-32) H 10/05/17 06:40 MCHC 33 % (30-34) 10/05/17 06:40 RDW 16.2 % (13.2-15.2) H 10/05/17 06:40 Plt Count 137 K/mm3 (140-440) L 10/05/17 06:40 Add Manual Diff Complete 10/05/17 06:40 Total Counted 100 10/05/17 06:40 Seg Neuts % (Manual) 70.0 % (40.0-70.0) 10/05/17 06:40 Band Neutrophils % 1.0 % 10/05/17 06:40 Lymphocytes % (Manual) 10.0 % (13.4-35.0) L 10/05/17 06:40 Reactive Lymphs % (Man) 0 % 10/05/17 06:40 Monocytes % (Manual) 19.0 % (0.0-7.3) H 10/05/17 06:40 Eosinophils % (Manual) 0 % (0.0-4.3) 10/05/17 06:40 Basophils % (Manual) 0 % (0.0-1.8) 10/05/17 06:40 Metamyelocytes % 0 % 10/05/17 06:40 Myelocytes % 0 % 10/05/17 06:40 Promyelocytes % 0 % 10/05/17 06:40 Blast Cells % 0 % 10/05/17 06:40 Nucleated RBC % Not Reportable 10/05/17 06:40 Seg Neutrophils # Man 5.9 K/mm3 (1.8-7.7) 10/05/17 06:40 Band Neutrophils # 0.1 K/mm3 10/05/17 06:40 Lymphocytes # (Manual) 0.8 K/mm3 (1.2-5.4) L 10/05/17 06:40 Abs React Lymphs (Man) 0.0 K/mm3 10/05/17 06:40 Monocytes # (Manual) 1.6 K/mm3 (0.0-0.8) H 10/05/17 06:40 Eosinophils # (Manual) 0.0 K/mm3 (0.0-0.4) 10/05/17 06:40 Basophils # (Manual) 0.0 K/mm3 (0.0-0.1) 10/05/17 06:40 Metamyelocytes # 0.0 K/mm3 10/05/17 06:40 Myelocytes # 0.0 K/mm3 10/05/17 06:40 Promyelocytes # 0.0 K/mm3 10/05/17 06:40 Blast Cells # 0.0 K/mm3 10/05/17 06:40 WBC Morphology Not Reportable 10/05/17 06:40 Hypersegmented Neuts Not Reportable 10/05/17 06:40 Hyposegmented Neuts Not Reportable 10/05/17 06:40 Hypogranular Neuts Not Reportable 10/05/17 06:40 Smudge Cells Not Reportable 10/05/17 06:40 Toxic Granulation Not Reportable 10/05/17 06:40 Toxic Vacuolation Not Reportable 10/05/17 06:40 Dohle Bodies Not Reportable 10/05/17 06:40 Pelger-Huet Anomaly Not Reportable 10/05/17 06:40 Elia Rods Not Reportable 10/05/17 06:40 Platelet Estimate Consistent w auto 10/05/17 06:40 Clumped Platelets Not Reportable 10/05/17 06:40 Plt Clumps, EDTA Not Reportable 10/05/17 06:40 Large Platelets Not Reportable 10/05/17 06:40 Giant Platelets Not Reportable 10/05/17 06:40 Platelet Satelliting Not Reportable 10/05/17 06:40 Plt Morphology Comment Not Reportable 10/05/17 06:40 RBC Morphology Not Reportable 10/05/17 06:40 Dimorphic RBCs Not Reportable 10/05/17 06:40 Polychromasia Not Reportable 10/05/17 06:40 Hypochromasia Not Reportable 10/05/17 06:40 Poikilocytosis Not Reportable 10/05/17 06:40 Anisocytosis 1+ 10/05/17 06:40 Microcytosis Not Reportable 10/05/17 06:40 Macrocytosis Not Reportable 10/05/17 06:40 Spherocytes Not Reportable 10/05/17 06:40 Pappenheimer Bodies Not Reportable 10/05/17 06:40 Sickle Cells Not Reportable 10/05/17 06:40 Target Cells Not Reportable 10/05/17 06:40 Tear Drop Cells Not Reportable 10/05/17 06:40 Ovalocytes Not Reportable 10/05/17 06:40 Helmet Cells Not Reportable 10/05/17 06:40 Duong-Springs Bodies Not Reportable 10/05/17 06:40 Ekron Rings Not Reportable 10/05/17 06:40 Estela Cells Not Reportable 10/05/17 06:40 Bite Cells Not Reportable 10/05/17 06:40 Crenated Cell Not Reportable 10/05/17 06:40 Elliptocytes Not Reportable 10/05/17 06:40 Acanthocytes (Spur) Not Reportable 10/05/17 06:40 Rouleaux Not Reportable 10/05/17 06:40 Hemoglobin C Crystals Not Reportable 10/05/17 06:40 Schistocytes Not Reportable 10/05/17 06:40 Malaria parasites Not Reportable 10/05/17 06:40 Rusty Bodies Not Reportable 10/05/17 06:40 Hem Pathologist Commnt No 10/05/17 06:40 PT 12.7 Sec. (12.2-14.9) 10/05/17 06:40 INR 0.91 (0.87-1.13) 10/05/17 06:40 APTT 38.4 Sec. (24.2-36.6) H 10/05/17 06:40 Thrombin Time 15.3 Sec. (15.1-19.6) 10/05/17 06:40 Sodium 141 mmol/L (137-145) 10/05/17 06:40 Potassium 4.0 mmol/L (3.6-5.0) 10/05/17 06:40 Chloride 99.2 mmol/L (98-107) 10/05/17 06:40 Carbon Dioxide 27 mmol/L (22-30) 10/05/17 06:40 Anion Gap 19 mmol/L 10/05/17 06:40 BUN 12 mg/dL (7-17) 10/05/17 06:40 Creatinine 0.6 mg/dL (0.7-1.2) L 10/05/17 06:40 Estimated GFR > 60 ml/min 10/05/17 06:40 BUN/Creatinine Ratio 20 % 10/05/17 06:40 Glucose 107 mg/dL (65-100) H 10/05/17 06:40 POC Glucose 92 (70-105) 10/05/17 07:01 Hemoglobin A1c 4.9 % (4-6) 10/06/17 06:34 Calcium 9.2 mg/dL (8.4-10.2) 10/05/17 06:40 Total Bilirubin 0.60 mg/dL (0.1-1.2) 10/05/17 06:40 Direct Bilirubin < 0.2 mg/dL (0-0.2) 10/05/17 06:40 AST 61 units/L (5-40) H 10/05/17 06:40 ALT 60 units/L (7-56) H 10/05/17 06:40 Alkaline Phosphatase 55 units/L (35-129) 10/05/17 06:40 Total Creatine Kinase 45 units/L (30-135) 10/05/17 06:40 CK-MB (CK-2) 1.9 ng/mL (0.0-4.0) 10/05/17 06:40 CK-MB (CK-2) Rel Index 4.2 (0-4) H 10/05/17 06:40 Troponin T < 0.010 ng/mL (0.00-0.029) 10/05/17 06:40 Total Protein 7.0 g/dL (6.3-8.2) 10/05/17 06:40 Albumin 4.0 g/dL (3.9-5) 10/05/17 06:40 Albumin/Globulin Ratio 1.3 % 10/05/17 06:40 Triglycerides 129 mg/dL (2-149) 10/06/17 06:37 Cholesterol 204 mg/dL (50-199) H 10/06/17 06:37 LDL Cholesterol Direct 144 mg/dL (50-130) H 10/06/17 06:37 HDL Cholesterol 38 mg/dL (40-59) L 10/06/17 06:37 Cholesterol/HDL Ratio 5.36 % 10/06/17 06:37 Urine Color Yellow (Yellow) 10/05/17 13:47 Urine Turbidity Clear (Clear) 10/05/17 13:47 Urine pH 5.0 (5.0-7.0) 10/05/17 13:47 Ur Specific [employer] 1.026 (1.003-1.030) 10/05/17 13:47 Urine Protein 30 mg/dl mg/dL (Negative) 10/05/17 13:47 Urine Glucose (UA) Neg mg/dL (Negative) 10/05/17 13:47 Urine Ketones Tr mg/dL (Negative) 10/05/17 13:47 Urine Blood Neg (Negative) 10/05/17 13:47 Urine Nitrite Neg (Negative) 10/05/17 13:47 Urine Bilirubin Neg (Negative) 10/05/17 13:47 Urine Urobilinogen < 2.0 mg/dL (<2.0) 10/05/17 13:47 Ur Leukocyte Esterase Neg (Negative) 10/05/17 13:47 Urine WBC (Auto) 6.0 /HPF (0.0-6.0) 10/05/17 13:47 Urine RBC (Auto) 11.0 /HPF (0.0-6.0) 10/05/17 13:47 U Epithel Cells (Auto) 8.0 /HPF (0-13.0) 10/05/17 13:47 Urine Bacteria (Auto) 1+ /HPF (Negative) 10/05/17 13:47 Urine Mucus Few /HPF 10/05/17 13:47 Urine Opiates Screen Presumptive negative 10/05/17 13:40 Urine Methadone Screen Presumptive negative 10/05/17 13:40 Ur Barbiturates Screen Presumptive negative 10/05/17 13:40 Ur Phencyclidine Scrn Presumptive negative 10/05/17 13:40 Ur Amphetamines Screen Presumptive negative 10/05/17 13:40 U Benzodiazepines Scrn Presumptive positive 10/05/17 13:40 Urine Cocaine Screen Presumptive negative 10/05/17 13:40 U Marijuana (THC) Screen Presumptive negative 10/05/17 13:40 Drugs of Abuse Note Disclamer 10/05/17 13:40 Plasma/Serum Alcohol < 0.01 % (0-0.07) 10/05/17 06:40
[2017-10-07] MEDS ORDERED: GEODON IM PRN (15:58)
[2017-10-07] MEDS: APRESOLINE IV PRN (20:43)
[2017-10-07] MEDS: LOVENOX SUB-Q SCH (21:01)
[2017-10-08] MEDS: LIBRIUM PO PRN (00:06)
[2017-10-08] MEDS: NORVASC PO SCH (09:29)
[2017-10-08] MEDS: HCTZ PO SCH (09:30)
[2017-10-08] MEDS: PEPCID PO SCH ×2 (09:30→22:20)
[2017-10-08] MEDS: BABY ASPIRIN PO SCH (09:30)
[2017-10-08] MEDS: COREG PO SCH ×2 (09:30→22:20)
[2017-10-08] MEDS: PROzac PO SCH (09:31)
--- NOTE | 2017-10-08 14:02 | Progress Note ---
Subjective - Reason for Consult Consult date: 10/08/17 Reason for consult: Psychiatric Follow-up Evalation - Chief Complaint Chief complaint: "I feel good. " Patient is a 57 year old female who presents from [facility] for left sided weakness. Today, patient states " I feel good. My mood is good. I' m trying to keep the negative things away from me. The medication that I'm taking seems to be working. I slept like a rock last night." Patient endorses decreasing paranoid thoughts. Patient reports medication compliance. She denies any side effects. Also she denies suicidal ideations/homicidal ideations and auditory/visual hallucinations. Mental Status Exam - Vital signs Last Vital Signs Temp 98.2 F 10/08/17 11:36 Pulse 64 10/08/17 11:36 Resp 18 10/08/17 11:36 BP 134/63 10/08/17 11:36 Pulse Ox 96 10/08/17 11:36 - Exam Narrative exam: Mental Status Exam: Appearance: Casually dressed-hospital gown Attitude/Behavior: Cooperative Sensorium: Clear Orientation: Alert and oriented 4 (person, place, time, date, situation) Psychomotor & Musculoskeletal Activity: Within normal limits. Sitting up in bed Speech: Normal rate and tone Mood: Anxious, depressed-less Affect: congruent to mood Thought Process: tangential, circumstantial Thought Content: Paranoid-less Perception: Patient denies Insight: poor Judgment: poor Assessment and Plan Impression: MDD, Severe Type. Hx of Alcohol Use DO. Unspecified Psychosis - Additional Dx. Today the patient reports good. Appears anxious and depressed. Endorses decrease in paranoid thoughts. Denies suicidal/homicidal ideations and auditory/visual hallucinations. No alcohol withdrawal symptoms noted. DDx: R/O Bipolar DO Recommendation/Plan: 1. Continue 1013 with placement to inpatient psychiatric services once medically clear. 2. Continue Prozac 20 mg PO Daily for depression and Zyprexa 5 mg PO HS for psychosis. 3. Discussed possible suicidality/medication induced pan with patient reference Prozac. 4. Will continue to monitor patient's mood, sleep, appetite, and side effects.
--- NOTE | 2017-10-08 14:49 | Progress Note ---
Assessment and Plan Assessment and plan: This is a 57-year-old obese white female with a history of anxiety depression and alcohol abuse sent from outside psych facility with strokelike symptoms ( left-sided weakness ) and uncontrolled blood pressure Possible TIA - CVA workup was negative - Likely worsening of previous CVA due to hypertensive urgency h/o Depression and anxiety - consulted psych, placed on 1013 with sitter - Started Prozac 20 mg PO Daily for depression. - On Geodon PRN for agitation. HTN, uncontrolled - Place on norvasc, coreg, HCTZ and as needed hydralazine iv - Still uncontrolled because of agitation - requested medical records from [facility] Alcohol abuse - monitor for withdrawal, last drink was about a week ago - place on librium per protocol h/o CVA - cont aspirin, statin - We'll place on GI prophylaxis to avoid stress ulcer - Place on DVT prophylaxis Disposition: medically cleared for discharge. . History Interval history: Patient was seen and evaluated this morning, patient was calm and cooprative. Hospitalist Physical - Physical exam Narrative exam: Not in cardiopulmonary distress. The patient is morbidly obese. Vital signs as documented. Head exam is unremarkable. No scleral icterus . Neck is without jugular venous distension, thyromegaly, or carotid bruits. Lungs are clear to auscultation. Cardiac exam reveals regular rate and Rhythm. First and second heart sounds normal. No murmurs, rubs or gallops. Abdominal exam reveals normal bowel sounds, no masses, no organomegaly and no aortic enlargement. Extremities are nonedematous and both femoral and pedal pulses are normal. ACCOUNTING SUPERVISOR: Alert and oriented 3. No focal weakness. Psychiatric: patient was calm and cooperative. No SI. - Constitutional Vitals: Temp Pulse Resp BP Pulse Ox 98.2 F 64 18 134/63 96 10/08/17 11:36 10/08/17 11:36 10/08/17 11:36 10/08/17 11:36 10/08/17 11:36 Results - Labs CBC & Chem 7: 10/05/17 06:40 10/05/17 06:40 Labs: Laboratory Last Values WBC 8.4 K/mm3 (4.5-11.0) 10/05/17 06:40 RBC 4.68 M/mm3 (3.65-5.03) 10/05/17 06:40 Hgb 16.1 gm/dl (10.1-14.3) H 10/05/17 06:40 Hct 48.7 % (30.3-42.9) H 10/05/17 06:40 MCV 104 fl (79-97) H 10/05/17 06:40 MCH 34 pg (28-32) H 10/05/17 06:40 MCHC 33 % (30-34) 10/05/17 06:40 RDW 16.2 % (13.2-15.2) H 10/05/17 06:40 Plt Count 137 K/mm3 (140-440) L 10/05/17 06:40 Add Manual Diff Complete 10/05/17 06:40 Total Counted 100 10/05/17 06:40 Seg Neuts % (Manual) 70.0 % (40.0-70.0) 10/05/17 06:40 Band Neutrophils % 1.0 % 10/05/17 06:40 Lymphocytes % (Manual) 10.0 % (13.4-35.0) L 10/05/17 06:40 Reactive Lymphs % (Man) 0 % 10/05/17 06:40 Monocytes % (Manual) 19.0 % (0.0-7.3) H 10/05/17 06:40 Eosinophils % (Manual) 0 % (0.0-4.3) 10/05/17 06:40 Basophils % (Manual) 0 % (0.0-1.8) 10/05/17 06:40 Metamyelocytes % 0 % 10/05/17 06:40 Myelocytes % 0 % 10/05/17 06:40 Promyelocytes % 0 % 10/05/17 06:40 Blast Cells % 0 % 10/05/17 06:40 Nucleated RBC % Not Reportable 10/05/17 06:40 Seg Neutrophils # Man 5.9 K/mm3 (1.8-7.7) 10/05/17 06:40 Band Neutrophils # 0.1 K/mm3 10/05/17 06:40 Lymphocytes # (Manual) 0.8 K/mm3 (1.2-5.4) L 10/05/17 06:40 Abs React Lymphs (Man) 0.0 K/mm3 10/05/17 06:40 Monocytes # (Manual) 1.6 K/mm3 (0.0-0.8) H 10/05/17 06:40 Eosinophils # (Manual) 0.0 K/mm3 (0.0-0.4) 10/05/17 06:40 Basophils # (Manual) 0.0 K/mm3 (0.0-0.1) 10/05/17 06:40 Metamyelocytes # 0.0 K/mm3 10/05/17 06:40 Myelocytes # 0.0 K/mm3 10/05/17 06:40 Promyelocytes # 0.0 K/mm3 10/05/17 06:40 Blast Cells # 0.0 K/mm3 10/05/17 06:40 WBC Morphology Not Reportable 10/05/17 06:40 Hypersegmented Neuts Not Reportable 10/05/17 06:40 Hyposegmented Neuts Not Reportable 10/05/17 06:40 Hypogranular Neuts Not Reportable 10/05/17 06:40 Smudge Cells Not Reportable 10/05/17 06:40 Toxic Granulation Not Reportable 10/05/17 06:40 Toxic Vacuolation Not Reportable 10/05/17 06:40 Dohle Bodies Not Reportable 10/05/17 06:40 Pelger-Huet Anomaly Not Reportable 10/05/17 06:40 Elia Rods Not Reportable 10/05/17 06:40 Platelet Estimate Consistent w auto 10/05/17 06:40 Clumped Platelets Not Reportable 10/05/17 06:40 Plt Clumps, EDTA Not Reportable 10/05/17 06:40 Large Platelets Not Reportable 10/05/17 06:40 Giant Platelets Not Reportable 10/05/17 06:40 Platelet Satelliting Not Reportable 10/05/17 06:40 Plt Morphology Comment Not Reportable 10/05/17 06:40 RBC Morphology Not Reportable 10/05/17 06:40 Dimorphic RBCs Not Reportable 10/05/17 06:40 Polychromasia Not Reportable 10/05/17 06:40 Hypochromasia Not Reportable 10/05/17 06:40 Poikilocytosis Not Reportable 10/05/17 06:40 Anisocytosis 1+ 10/05/17 06:40 Microcytosis Not Reportable 10/05/17 06:40 Macrocytosis Not Reportable 10/05/17 06:40 Spherocytes Not Reportable 10/05/17 06:40 Pappenheimer Bodies Not Reportable 10/05/17 06:40 Sickle Cells Not Reportable 10/05/17 06:40 Target Cells Not Reportable 10/05/17 06:40 Tear Drop Cells Not Reportable 10/05/17 06:40 Ovalocytes Not Reportable 10/05/17 06:40 Helmet Cells Not Reportable 10/05/17 06:40 [place] Bodies Not Reportable 10/05/17 06:40 [place] Rings Not Reportable 10/05/17 06:40 [place] Cells Not Reportable 10/05/17 06:40 Bite Cells Not Reportable 10/05/17 06:40 Crenated Cell Not Reportable 10/05/17 06:40 Elliptocytes Not Reportable 10/05/17 06:40 Acanthocytes (Spur) Not Reportable 10/05/17 06:40 Rouleaux Not Reportable 10/05/17 06:40 Hemoglobin C Crystals Not Reportable 10/05/17 06:40 Schistocytes Not Reportable 10/05/17 06:40 Malaria parasites Not Reportable 10/05/17 06:40 Rusty Bodies Not Reportable 10/05/17 06:40 Hem Pathologist Commnt No 10/05/17 06:40 PT 12.7 Sec. (12.2-14.9) 10/05/17 06:40 INR 0.91 (0.87-1.13) 10/05/17 06:40 APTT 38.4 Sec. (24.2-36.6) H 10/05/17 06:40 Thrombin Time 15.3 Sec. (15.1-19.6) 10/05/17 06:40 Sodium 141 mmol/L (137-145) 10/05/17 06:40 Potassium 4.0 mmol/L (3.6-5.0) 10/05/17 06:40 Chloride 99.2 mmol/L (98-107) 10/05/17 06:40 Carbon Dioxide 27 mmol/L (22-30) 10/05/17 06:40 Anion Gap 19 mmol/L 10/05/17 06:40 BUN 12 mg/dL (7-17) 10/05/17 06:40 Creatinine 0.6 mg/dL (0.7-1.2) L 10/05/17 06:40 Estimated GFR > 60 ml/min 10/05/17 06:40 BUN/Creatinine Ratio 20 % 10/05/17 06:40 Glucose 107 mg/dL (65-100) H 10/05/17 06:40 POC Glucose 92 (70-105) 10/05/17 07:01 Hemoglobin A1c 4.9 % (4-6) 10/06/17 06:34 Calcium 9.2 mg/dL (8.4-10.2) 10/05/17 06:40 Total Bilirubin 0.60 mg/dL (0.1-1.2) 10/05/17 06:40 Direct Bilirubin < 0.2 mg/dL (0-0.2) 10/05/17 06:40 AST 61 units/L (5-40) H 10/05/17 06:40 ALT 60 units/L (7-56) H 10/05/17 06:40 Alkaline Phosphatase 55 units/L (35-129) 10/05/17 06:40 Total Creatine Kinase 45 units/L (30-135) 10/05/17 06:40 CK-MB (CK-2) 1.9 ng/mL (0.0-4.0) 10/05/17 06:40 CK-MB (CK-2) Rel Index 4.2 (0-4) H 10/05/17 06:40 Troponin T < 0.010 ng/mL (0.00-0.029) 10/05/17 06:40 Total Protein 7.0 g/dL (6.3-8.2) 10/05/17 06:40 Albumin 4.0 g/dL (3.9-5) 10/05/17 06:40 Albumin/Globulin Ratio 1.3 % 10/05/17 06:40 Triglycerides 129 mg/dL (2-149) 10/06/17 06:37 Cholesterol 204 mg/dL (50-199) H 10/06/17 06:37 LDL Cholesterol Direct 144 mg/dL (50-130) H 10/06/17 06:37 HDL Cholesterol 38 mg/dL (40-59) L 10/06/17 06:37 Cholesterol/HDL Ratio 5.36 % 10/06/17 06:37 Urine Color Yellow (Yellow) 10/05/17 13:47 Urine Turbidity Clear (Clear) 10/05/17 13:47 Urine pH 5.0 (5.0-7.0) 10/05/17 13:47 Ur Specific [place] 1.026 (1.003-1.030) 10/05/17 13:47 Urine Protein 30 mg/dl mg/dL (Negative) 10/05/17 13:47 Urine Glucose (UA) Neg mg/dL (Negative) 10/05/17 13:47 Urine Ketones Tr mg/dL (Negative) 10/05/17 13:47 Urine Blood Neg (Negative) 10/05/17 13:47 Urine Nitrite Neg (Negative) 10/05/17 13:47 Urine Bilirubin Neg (Negative) 10/05/17 13:47 Urine Urobilinogen < 2.0 mg/dL (<2.0) 10/05/17 13:47 Ur Leukocyte Esterase Neg (Negative) 10/05/17 13:47 Urine WBC (Auto) 6.0 /HPF (0.0-6.0) 10/05/17 13:47 Urine RBC (Auto) 11.0 /HPF (0.0-6.0) 10/05/17 13:47 U Epithel Cells (Auto) 8.0 /HPF (0-13.0) 10/05/17 13:47 Urine Bacteria (Auto) 1+ /HPF (Negative) 10/05/17 13:47 Urine Mucus Few /HPF 10/05/17 13:47 Urine Opiates Screen Presumptive negative 10/05/17 13:40 Urine Methadone Screen Presumptive negative 10/05/17 13:40 Ur Barbiturates Screen Presumptive negative 10/05/17 13:40 Ur Phencyclidine Scrn Presumptive negative 10/05/17 13:40 Ur Amphetamines Screen Presumptive negative 10/05/17 13:40 U Benzodiazepines Scrn Presumptive positive 10/05/17 13:40 Urine Cocaine Screen Presumptive negative 10/05/17 13:40 U Marijuana (THC) Screen Presumptive negative 10/05/17 13:40 Drugs of Abuse Note Disclamer 10/05/17 13:40 Plasma/Serum Alcohol < 0.01 % (0-0.07) 10/05/17 06:40
[2017-10-08] MEDS: LOVENOX SUB-Q SCH (22:21)
[2017-10-09] MEDS: LIBRIUM PO PRN (00:11)
[2017-10-09 07:14] LABS: BUN/Creatinine Ratio 17; Blood Urea Nitrogen 12 mg/dL (7-17); Calcium 8.9 mg/dL (8.4-10.2); Hemolysis Index 16
[2017-10-09] MEDS: PEPCID PO SCH ×2 (09:59→22:37)
[2017-10-09] MEDS: PROzac PO SCH (10:00)
[2017-10-09] MEDS: BABY ASPIRIN PO SCH (10:00)
--- NOTE | 2017-10-09 10:15 | Progress Note ---
Subjective - Reason for Consult Consult date: 10/09/17 Reason for consult: Psychiatry Follow-up - Chief Complaint Chief complaint: "It's been rough for me" 57 y.o. whit female presenting from [facility] for left sided weakness. Today the patient is calm and cooperative during the assessment. She stated that she have no idea why she had paranoid thoughts 2 days ago. She stated not feeling "pretty" because of her new dentures along with the of her has caused her to be depressed. The patient has attempted to hurt herself twice during this admission by wrapping cords around her neck. She stated that she just "freaked out." She denies SI/HI's and AVH's. She denies any side effects of her medications. Mental Status Exam - Vital signs Last Vital Signs Temp 98.1 F 10/09/17 06:15 Pulse 79 10/09/17 08:12 Resp 20 10/09/17 08:12 BP 128/87 10/09/17 08:12 Pulse Ox 93 10/09/17 08:12 - Exam Narrative exam: MSE: Appearance: calm, cooperative Behavior: regular eye contact Speech: regular rate and tone Mood: "better" Affect: congruent to mood Thought Process: circumstantial Thought Content: denies SI/HI's and AVH's Motor Activity: sitting up in bed Cognition: A/O x 3 Insight: fair Judgment: fair Assessment and Plan Impression: MDD, Severe Type. Hx of Alcohol Use DO. Unspecified Psychosis - Additional Dx. Today the patient is calm during the assessment. The patient is moving all her limbs on command. No acute withdrawals noted. DDx: R/O Bipolar DO Recommendation/Plan: Continue 1013 with placement to inpatient psy services. Reassess the need for the CIWA. Continue Prozac 20 mg PO Daily for depression and Zyprexa 5 mg PO HS for mood/psychosis. Discussed possible suicidality/ medication induced pan with patient reference Prozac. Discussed possible metabolic side effects of Zyprexa with patient and her sister.
[2017-10-09] MEDS: COREG PO SCH ×2 (10:42→22:37)
[2017-10-09] MEDS: HCTZ PO SCH (10:42)
[2017-10-09] MEDS: NORVASC PO SCH (10:43)
[2017-10-09] MEDS: APRESOLINE IV PRN (18:55)
[2017-10-09] MEDS: APRESOLINE PO SCH ×2 (20:45→22:42)
[2017-10-09] MEDS: LOVENOX SUB-Q SCH (22:35)
[2017-10-10] MEDS: LIBRIUM PO PRN (00:32)
[2017-10-10] MEDS: APRESOLINE PO SCH ×3 (05:57→21:31)
[2017-10-10] MEDS: BABY ASPIRIN PO SCH (09:57)
[2017-10-10] MEDS: HCTZ PO SCH (09:58)
[2017-10-10] MEDS: COREG PO SCH ×2 (09:58→21:32)
[2017-10-10] MEDS: PEPCID PO SCH ×2 (10:02→21:28)
[2017-10-10] MEDS: PROzac PO SCH (10:02)
[2017-10-10] MEDS: NORVASC PO SCH (10:03)
--- NOTE | 2017-10-10 12:42 | Progress Note ---
Subjective - Reason for Consult Consult date: 10/10/17 Reason for consult: Psychiatry Follow-up - Chief Complaint Chief complaint: "I feel like I can leave" 57 y.o. whit female presenting from [facility] for left sided weakness. Today the patient is calm and cooperative during the assessment. She stated that she can be discharged. She did not want to discuss her suicide attempts that occurred on this admission. She is adamant that she was "just freaking out. " She denies SI/HI's and AVH"s. She denies any side effects of her medications. Mental Status Exam - Vital signs Last Vital Signs Temp 97.6 F 10/10/17 08:17 Pulse 131 H 10/10/17 10:03 Resp 20 10/10/17 10:00 BP 148/92 10/10/17 10:03 Pulse Ox 92 10/10/17 08:17 - Exam Narrative exam: MSE: Appearance: calm, cooperative Behavior: regular eye contact Speech: regular rate and tone Mood: "okay" Affect: congruent to mood Thought Process: circumstantial Thought Content: denies SI/HI's and AVH's Motor Activity: sitting up in bed Cognition: A/O x 3 Insight: variable Judgment: variable Assessment and Plan Impression: MDD, Severe Type. Hx of Alcohol Use DO. Unspecified Psychosis - Additional Dx. Today the patient is calm during the assessment. The patient is moving all her limbs on command. No acute withdrawals noted (etoh). The patients minimizes her actions. DDx: R/O Bipolar DO Recommendation/Plan: Continue 1013 with placement to inpatient psy services. Reassess the need for the CIWA. Continue Prozac 20 mg PO Daily for depression and Zyprexa 5 mg PO HS for mood/psychosis. Discussed possible suicidality/ medication induced pan with patient reference Prozac. Discussed possible metabolic side effects of Zyprexa with patient and her sister.
--- NOTE | 2017-10-10 15:40 | Progress Note ---
Assessment and Plan Assessment and plan: This is a 57-year-old obese white female with a history of anxiety depression and alcohol abuse sent from outside psych facility with strokelike symptoms ( left-sided weakness ) and uncontrolled blood pressure Possible TIA - CVA workup was negative - Likely worsening of previous CVA due to hypertensive urgency h/o Depression and anxiety - consulted psych, placed on 1013 with sitter - Started Prozac 20 mg PO Daily for depression. - On Geodon PRN for agitation. HTN, controlled - We'll hold some of the blood pressure medications Alcohol abuse - monitor for withdrawal, last drink was about a week ago - place on librium per protocol h/o CVA - cont aspirin, statin - We'll place on GI prophylaxis to avoid stress ulcer - Place on DVT prophylaxis Disposition: medically cleared for discharge. . History Interval history: Patient was seen and evaluated this morning, patient was calm and cooprative. Hospitalist Physical - Physical exam Narrative exam: Not in cardiopulmonary distress. The patient is morbidly obese. Vital signs as documented. Head exam is unremarkable. No scleral icterus . Neck is without jugular venous distension, thyromegaly, or carotid bruits. Lungs are clear to auscultation. Cardiac exam reveals regular rate and Rhythm. First and second heart sounds normal. No murmurs, rubs or gallops. Abdominal exam reveals normal bowel sounds, no masses, no organomegaly and no aortic enlargement. Extremities are nonedematous and both femoral and pedal pulses are normal. MORTICIAN HELPER: Alert and oriented 3. No focal weakness. Psychiatric: patient was calm and cooperative. No SI. - Constitutional Vitals: Temp Pulse Resp BP Pulse Ox 97.5 F L 91 H 20 140/75 93 10/10/17 14:29 10/10/17 14:36 10/10/17 14:29 10/10/17 14:36 10/10/17 14:29 Results - Labs CBC & Chem 7: 10/05/17 06:40 10/09/17 06:04 Labs: Laboratory Last Values WBC 8.4 K/mm3 (4.5-11.0) 10/05/17 06:40 RBC 4.68 M/mm3 (3.65-5.03) 10/05/17 06:40 Hgb 16.1 gm/dl (10.1-14.3) H 10/05/17 06:40 Hct 48.7 % (30.3-42.9) H 10/05/17 06:40 MCV 104 fl (79-97) H 10/05/17 06:40 MCH 34 pg (28-32) H 10/05/17 06:40 MCHC 33 % (30-34) 10/05/17 06:40 RDW 16.2 % (13.2-15.2) H 10/05/17 06:40 Plt Count 137 K/mm3 (140-440) L 10/05/17 06:40 Add Manual Diff Complete 10/05/17 06:40 Total Counted 100 10/05/17 06:40 Seg Neuts % (Manual) 70.0 % (40.0-70.0) 10/05/17 06:40 Band Neutrophils % 1.0 % 10/05/17 06:40 Lymphocytes % (Manual) 10.0 % (13.4-35.0) L 10/05/17 06:40 Reactive Lymphs % (Man) 0 % 10/05/17 06:40 Monocytes % (Manual) 19.0 % (0.0-7.3) H 10/05/17 06:40 Eosinophils % (Manual) 0 % (0.0-4.3) 10/05/17 06:40 Basophils % (Manual) 0 % (0.0-1.8) 10/05/17 06:40 Metamyelocytes % 0 % 10/05/17 06:40 Myelocytes % 0 % 10/05/17 06:40 Promyelocytes % 0 % 10/05/17 06:40 Blast Cells % 0 % 10/05/17 06:40 Nucleated RBC % Not Reportable 10/05/17 06:40 Seg Neutrophils # Man 5.9 K/mm3 (1.8-7.7) 10/05/17 06:40 Band Neutrophils # 0.1 K/mm3 10/05/17 06:40 Lymphocytes # (Manual) 0.8 K/mm3 (1.2-5.4) L 10/05/17 06:40 Abs React Lymphs (Man) 0.0 K/mm3 10/05/17 06:40 Monocytes # (Manual) 1.6 K/mm3 (0.0-0.8) H 10/05/17 06:40 Eosinophils # (Manual) 0.0 K/mm3 (0.0-0.4) 10/05/17 06:40 Basophils # (Manual) 0.0 K/mm3 (0.0-0.1) 10/05/17 06:40 Metamyelocytes # 0.0 K/mm3 10/05/17 06:40 Myelocytes # 0.0 K/mm3 10/05/17 06:40 Promyelocytes # 0.0 K/mm3 10/05/17 06:40 Blast Cells # 0.0 K/mm3 10/05/17 06:40 WBC Morphology Not Reportable 10/05/17 06:40 Hypersegmented Neuts Not Reportable 10/05/17 06:40 Hyposegmented Neuts Not Reportable 10/05/17 06:40 Hypogranular Neuts Not Reportable 10/05/17 06:40 Smudge Cells Not Reportable 10/05/17 06:40 Toxic Granulation Not Reportable 10/05/17 06:40 Toxic Vacuolation Not Reportable 10/05/17 06:40 Dohle Bodies Not Reportable 10/05/17 06:40 Pelger-Huet Anomaly Not Reportable 10/05/17 06:40 Elia Rods Not Reportable 10/05/17 06:40 Platelet Estimate Consistent w auto 10/05/17 06:40 Clumped Platelets Not Reportable 10/05/17 06:40 Plt Clumps, EDTA Not Reportable 10/05/17 06:40 Large Platelets Not Reportable 10/05/17 06:40 Giant Platelets Not Reportable 10/05/17 06:40 Platelet Satelliting Not Reportable 10/05/17 06:40 Plt Morphology Comment Not Reportable 10/05/17 06:40 RBC Morphology Not Reportable 10/05/17 06:40 Dimorphic RBCs Not Reportable 10/05/17 06:40 Polychromasia Not Reportable 10/05/17 06:40 Hypochromasia Not Reportable 10/05/17 06:40 Poikilocytosis Not Reportable 10/05/17 06:40 Anisocytosis 1+ 10/05/17 06:40 Microcytosis Not Reportable 10/05/17 06:40 Macrocytosis Not Reportable 10/05/17 06:40 Spherocytes Not Reportable 10/05/17 06:40 Pappenheimer Bodies Not Reportable 10/05/17 06:40 Sickle Cells Not Reportable 10/05/17 06:40 Target Cells Not Reportable 10/05/17 06:40 Tear Drop Cells Not Reportable 10/05/17 06:40 Ovalocytes Not Reportable 10/05/17 06:40 Helmet Cells Not Reportable 10/05/17 06:[address] [place] Bodies Not Reportable 10/05/17 06:40 [place] Rings Not Reportable 10/05/17 06:40 [place] Cells Not Reportable 10/05/17 06:40 Bite Cells Not Reportable 10/05/17 06:40 Crenated Cell Not Reportable 10/05/17 06:40 Elliptocytes Not Reportable 10/05/17 06:40 Acanthocytes (Spur) Not Reportable 10/05/17 06:40 Rouleaux Not Reportable 10/05/17 06:40 Hemoglobin C Crystals Not Reportable 10/05/17 06:40 Schistocytes Not Reportable 10/05/17 06:40 Malaria parasites Not Reportable 10/05/17 06:40 Rusty Bodies Not Reportable 10/05/17 06:40 Hem Pathologist Commnt No 10/05/17 06:40 PT 12.7 Sec. (12.2-14.9) 10/05/17 06:40 INR 0.91 (0.87-1.13) 10/05/17 06:40 APTT 38.4 Sec. (24.2-36.6) H 10/05/17 06:40 Thrombin Time 15.3 Sec. (15.1-19.6) 10/05/17 06:40 Sodium 141 mmol/L (137-145) 10/09/17 06:04 Potassium 3.2 mmol/L (3.6-5.0) L 10/09/17 06:04 Chloride 99.2 mmol/L (98-107) 10/09/17 06:04 Carbon Dioxide 26 mmol/L (22-30) 10/09/17 06:04 Anion Gap 19 mmol/L 10/09/17 06:04 BUN 12 mg/dL (7-17) 10/09/17 06:04 Creatinine 0.7 mg/dL (0.7-1.2) 10/09/17 06:04 Estimated GFR > 60 ml/min 10/09/17 06:04 BUN/Creatinine Ratio 17 % 10/09/17 06:04 Glucose 101 mg/dL (65-100) H 10/09/17 06:04 POC Glucose 92 (70-105) 10/05/17 07:01 Hemoglobin A1c 4.9 % (4-6) 10/06/17 06:34 Calcium 8.9 mg/dL (8.4-10.2) 10/09/17 06:04 Total Bilirubin 0.60 mg/dL (0.1-1.2) 10/05/17 06:40 Direct Bilirubin < 0.2 mg/dL (0-0.2) 10/05/17 06:40 AST 61 units/L (5-40) H 10/05/17 06:40 ALT 60 units/L (7-56) H 10/05/17 06:40 Alkaline Phosphatase 55 units/L (35-129) 10/05/17 06:40 Total Creatine Kinase 45 units/L (30-135) 10/05/17 06:40 CK-MB (CK-2) 1.9 ng/mL (0.0-4.0) 10/05/17 06:40 CK-MB (CK-2) Rel Index 4.2 (0-4) H 10/05/17 06:40 Troponin T < 0.010 ng/mL (0.00-0.029) 10/05/17 06:40 Total Protein 7.0 g/dL (6.3-8.2) 10/05/17 06:40 Albumin 4.0 g/dL (3.9-5) 10/05/17 06:40 Albumin/Globulin Ratio 1.3 % 10/05/17 06:40 Triglycerides 129 mg/dL (2-149) 10/06/17 06:37 Cholesterol 204 mg/dL (50-199) H 10/06/17 06:37 LDL Cholesterol Direct 144 mg/dL (50-130) H 10/06/17 06:37 HDL Cholesterol 38 mg/dL (40-59) L 10/06/17 06:37 Cholesterol/HDL Ratio 5.36 % 10/06/17 06:37 Urine Color Yellow (Yellow) 10/05/17 13:47 Urine Turbidity Clear (Clear) 10/05/17 13:47 Urine pH 5.0 (5.0-7.0) 10/05/17 13:47 Ur Specific [place] 1.026 (1.003-1.030) 10/05/17 13:47 Urine Protein 30 mg/dl mg/dL (Negative) 10/05/17 13:47 Urine Glucose (UA) Neg mg/dL (Negative) 10/05/17 13:47 Urine Ketones Tr mg/dL (Negative) 10/05/17 13:47 Urine Blood Neg (Negative) 10/05/17 13:47 Urine Nitrite Neg (Negative) 10/05/17 13:47 Urine Bilirubin Neg (Negative) 10/05/17 13:47 Urine Urobilinogen < 2.0 mg/dL (<2.0) 10/05/17 13:47 Ur Leukocyte Esterase Neg (Negative) 10/05/17 13:47 Urine WBC (Auto) 6.0 /HPF (0.0-6.0) 10/05/17 13:47 Urine RBC (Auto) 11.0 /HPF (0.0-6.0) 10/05/17 13:47 U Epithel Cells (Auto) 8.0 /HPF (0-13.0) 10/05/17 13:47 Urine Bacteria (Auto) 1+ /HPF (Negative) 10/05/17 13:47 Urine Mucus Few /HPF 10/05/17 13:47 Urine Opiates Screen Presumptive negative 10/05/17 13:40 Urine Methadone Screen Presumptive negative 10/05/17 13:40 Ur Barbiturates Screen Presumptive negative 10/05/17 13:40 Ur Phencyclidine Scrn Presumptive negative 10/05/17 13:40 Ur Amphetamines Screen Presumptive negative 10/05/17 13:40 U Benzodiazepines Scrn Presumptive positive 10/05/17 13:40 Urine Cocaine Screen Presumptive negative 10/05/17 13:40 U Marijuana (THC) Screen Presumptive negative 10/05/17 13:40 Drugs of Abuse Note Disclamer 10/05/17 13:40 Plasma/Serum Alcohol < 0.01 % (0-0.07) 10/05/17 06:40
[2017-10-10] MEDS ORDERED: K-DUR PO ONE (17:55)
[2017-10-10] MEDS: LOVENOX SUB-Q SCH (21:32)
[2017-10-11] MEDS: APRESOLINE PO SCH (06:02)
[2017-10-11] MEDS: PEPCID PO SCH (09:52)
[2017-10-11] MEDS: BABY ASPIRIN PO SCH (09:52)
[2017-10-11] MEDS: PROTONIX PO SCH (12:14)
--- NOTE | 2017-10-11 12:39 | Progress Note ---
Assessment and Plan Assessment and plan: This is a 57-year-old obese white female with a history of anxiety depression and alcohol abuse sent from outside psych facility with strokelike symptoms ( left-sided weakness ) and uncontrolled blood pressure Possible TIA - CVA workup was negative - Likely worsening of previous CVA due to hypertensive urgency h/o Depression and anxiety - consulted psych, placed on 1013 with sitter - Meds were adjusted by psych HTN, controlled - Blood pressure is low and I hold all the medications Alcohol abuse - monitor for withdrawal - placed on protocol h/o CVA - cont aspirin, statin - We'll place on GI prophylaxis to avoid stress ulcer - Place on DVT prophylaxis Disposition: medically cleared for discharge. . History Interval history: Patient was seen and evaluated this morning, patient was calm and cooprative. Hospitalist Physical - Physical exam Narrative exam: Not in cardiopulmonary distress. The patient is morbidly obese. Vital signs as documented. Head exam is unremarkable. No scleral icterus . Neck is without jugular venous distension, thyromegaly, or carotid bruits. Lungs are clear to auscultation. Cardiac exam reveals regular rate and Rhythm. First and second heart sounds normal. No murmurs, rubs or gallops. Abdominal exam reveals normal bowel sounds, no masses, no organomegaly and no aortic enlargement. Extremities are nonedematous and both femoral and pedal pulses are normal. PRESCHOOL ASSISTANT DIRECTOR: Alert and oriented 3. No focal weakness. Psychiatric: patient was calm and cooperative. No SI. - Constitutional Vitals: Temp Pulse Resp BP Pulse Ox 98.3 F 71 16 93/43 91 10/11/17 05:57 10/11/17 06:02 10/11/17 05:57 10/11/17 06:02 10/11/17 05:57 Results - Labs CBC & Chem 7: 10/05/17 06:40 10/09/17 06:04 Labs: Laboratory Last Values WBC 8.4 K/mm3 (4.5-11.0) 10/05/17 06:40 RBC 4.68 M/mm3 (3.65-5.03) 10/05/17 06:40 Hgb 16.1 gm/dl (10.1-14.3) H 10/05/17 06:40 Hct 48.7 % (30.3-42.9) H 10/05/17 06:40 MCV 104 fl (79-97) H 10/05/17 06:40 MCH 34 pg (28-32) H 10/05/17 06:40 MCHC 33 % (30-34) 10/05/17 06:40 RDW 16.2 % (13.2-15.2) H 10/05/17 06:40 Plt Count 137 K/mm3 (140-440) L 10/05/17 06:40 Add Manual Diff Complete 10/05/17 06:40 Total Counted 100 10/05/17 06:40 Seg Neuts % (Manual) 70.0 % (40.0-70.0) 10/05/17 06:40 Band Neutrophils % 1.0 % 10/05/17 06:40 Lymphocytes % (Manual) 10.0 % (13.4-35.0) L 10/05/17 06:40 Reactive Lymphs % (Man) 0 % 10/05/17 06:40 Monocytes % (Manual) 19.0 % (0.0-7.3) H 10/05/17 06:40 Eosinophils % (Manual) 0 % (0.0-4.3) 10/05/17 06:40 Basophils % (Manual) 0 % (0.0-1.8) 10/05/17 06:40 Metamyelocytes % 0 % 10/05/17 06:40 Myelocytes % 0 % 10/05/17 06:40 Promyelocytes % 0 % 10/05/17 06:40 Blast Cells % 0 % 10/05/17 06:40 Nucleated RBC % Not Reportable 10/05/17 06:40 Seg Neutrophils # Man 5.9 K/mm3 (1.8-7.7) 10/05/17 06:40 Band Neutrophils # 0.1 K/mm3 10/05/17 06:40 Lymphocytes # (Manual) 0.8 K/mm3 (1.2-5.4) L 10/05/17 06:40 Abs React Lymphs (Man) 0.0 K/mm3 10/05/17 06:40 Monocytes # (Manual) 1.6 K/mm3 (0.0-0.8) H 10/05/17 06:40 Eosinophils # (Manual) 0.0 K/mm3 (0.0-0.4) 10/05/17 06:40 Basophils # (Manual) 0.0 K/mm3 (0.0-0.1) 10/05/17 06:40 Metamyelocytes # 0.0 K/mm3 10/05/17 06:40 Myelocytes # 0.0 K/mm3 10/05/17 06:40 Promyelocytes # 0.0 K/mm3 10/05/17 06:40 Blast Cells # 0.0 K/mm3 10/05/17 06:40 WBC Morphology Not Reportable 10/05/17 06:40 Hypersegmented Neuts Not Reportable 10/05/17 06:40 Hyposegmented Neuts Not Reportable 10/05/17 06:40 Hypogranular Neuts Not Reportable 10/05/17 06:40 Smudge Cells Not Reportable 10/05/17 06:40 Toxic Granulation Not Reportable 10/05/17 06:40 Toxic Vacuolation Not Reportable 10/05/17 06:40 Dohle Bodies Not Reportable 10/05/17 06:40 Pelger-Huet Anomaly Not Reportable 10/05/17 06:40 Elia Rods Not Reportable 10/05/17 06:40 Platelet Estimate Consistent w auto 10/05/17 06:40 Clumped Platelets Not Reportable 10/05/17 06:40 Plt Clumps, EDTA Not Reportable 10/05/17 06:40 Large Platelets Not Reportable 10/05/17 06:40 Giant Platelets Not Reportable 10/05/17 06:40 Platelet Satelliting Not Reportable 10/05/17 06:40 Plt Morphology Comment Not Reportable 10/05/17 06:40 RBC Morphology Not Reportable 10/05/17 06:40 Dimorphic RBCs Not Reportable 10/05/17 06:40 Polychromasia Not Reportable 10/05/17 06:40 Hypochromasia Not Reportable 10/05/17 06:40 Poikilocytosis Not Reportable 10/05/17 06:40 Anisocytosis 1+ 10/05/17 06:40 Microcytosis Not Reportable 10/05/17 06:40 Macrocytosis Not Reportable 10/05/17 06:40 Spherocytes Not Reportable 10/05/17 06:40 Pappenheimer Bodies Not Reportable 10/05/17 06:40 Sickle Cells Not Reportable 10/05/17 06:40 Target Cells Not Reportable 10/05/17 06:40 Tear Drop Cells Not Reportable 10/05/17 06:40 Ovalocytes Not Reportable 10/05/17 06:40 Helmet Cells Not Reportable 10/05/17 06:40 [place] Bodies Not Reportable 10/05/17 06:40 [place] Rings Not Reportable 10/05/17 06:40 [place] Cells Not Reportable 10/05/17 06:40 Bite Cells Not Reportable 10/05/17 06:40 Crenated Cell Not Reportable 10/05/17 06:40 Elliptocytes Not Reportable 10/05/17 06:40 Acanthocytes (Spur) Not Reportable 10/05/17 06:40 Rouleaux Not Reportable 10/05/17 06:40 Hemoglobin C Crystals Not Reportable 10/05/17 06:40 Schistocytes Not Reportable 10/05/17 06:40 Malaria parasites Not Reportable 10/05/17 06:40 Rusty Bodies Not Reportable 10/05/17 06:40 Hem Pathologist Commnt No 10/05/17 06:40 PT 12.7 Sec. (12.2-14.9) 10/05/17 06:40 INR 0.91 (0.87-1.13) 10/05/17 06:40 APTT 38.4 Sec. (24.2-36.6) H 10/05/17 06:40 Thrombin Time 15.3 Sec. (15.1-19.6) 10/05/17 06:40 Sodium 141 mmol/L (137-145) 10/09/17 06:04 Potassium 3.2 mmol/L (3.6-5.0) L 10/09/17 06:04 Chloride 99.2 mmol/L (98-107) 10/09/17 06:04 Carbon Dioxide 26 mmol/L (22-30) 10/09/17 06:04 Anion Gap 19 mmol/L 10/09/17 06:04 BUN 12 mg/dL (7-17) 10/09/17 06:04 Creatinine 0.7 mg/dL (0.7-1.2) 10/09/17 06:04 Estimated GFR > 60 ml/min 10/09/17 06:04 BUN/Creatinine Ratio 17 % 10/09/17 06:04 Glucose 101 mg/dL (65-100) H 10/09/17 06:04 POC Glucose 92 (70-105) 10/05/17 07:01 Hemoglobin A1c 4.9 % (4-6) 10/06/17 06:34 Calcium 8.9 mg/dL (8.4-10.2) 10/09/17 06:04 Total Bilirubin 0.60 mg/dL (0.1-1.2) 10/05/17 06:40 Direct Bilirubin < 0.2 mg/dL (0-0.2) 10/05/17 06:40 AST 61 units/L (5-40) H 10/05/17 06:40 ALT 60 units/L (7-56) H 10/05/17 06:40 Alkaline Phosphatase 55 units/L (35-129) 10/05/17 06:40 Total Creatine Kinase 45 units/L (30-135) 10/05/17 06:40 CK-MB (CK-2) 1.9 ng/mL (0.0-4.0) 10/05/17 06:40 CK-MB (CK-2) Rel Index 4.2 (0-4) H 10/05/17 06:40 Troponin T < 0.010 ng/mL (0.00-0.029) 10/05/17 06:40 Total Protein 7.0 g/dL (6.3-8.2) 10/05/17 06:40 Albumin 4.0 g/dL (3.9-5) 10/05/17 06:40 Albumin/Globulin Ratio 1.3 % 10/05/17 06:40 Triglycerides 129 mg/dL (2-149) 10/06/17 06:37 Cholesterol 204 mg/dL (50-199) H 10/06/17 06:37 LDL Cholesterol Direct 144 mg/dL (50-130) H 10/06/17 06:37 HDL Cholesterol 38 mg/dL (40-59) L 10/06/17 06:37 Cholesterol/HDL Ratio 5.36 % 10/06/17 06:37 Urine Color Yellow (Yellow) 10/05/17 13:47 Urine Turbidity Clear (Clear) 10/05/17 13:47 Urine pH 5.0 (5.0-7.0) 10/05/17 13:47 Ur Specific [place] 1.026 (1.003-1.030) 10/05/17 13:47 Urine Protein 30 mg/dl mg/dL (Negative) 10/05/17 13:47 Urine Glucose (UA) Neg mg/dL (Negative) 10/05/17 13:47 Urine Ketones Tr mg/dL (Negative) 10/05/17 13:47 Urine Blood Neg (Negative) 10/05/17 13:47 Urine Nitrite Neg (Negative) 10/05/17 13:47 Urine Bilirubin Neg (Negative) 10/05/17 13:47 Urine Urobilinogen < 2.0 mg/dL (<2.0) 10/05/17 13:47 Ur Leukocyte Esterase Neg (Negative) 10/05/17 13:47 Urine WBC (Auto) 6.0 /HPF (0.0-6.0) 10/05/17 13:47 Urine RBC (Auto) 11.0 /HPF (0.0-6.0) 10/05/17 13:47 U Epithel Cells (Auto) 8.0 /HPF (0-13.0) 10/05/17 13:47 Urine Bacteria (Auto) 1+ /HPF (Negative) 10/05/17 13:47 Urine Mucus Few /HPF 10/05/17 13:47 Urine Opiates Screen Presumptive negative 10/05/17 13:40 Urine Methadone Screen Presumptive negative 10/05/17 13:40 Ur Barbiturates Screen Presumptive negative 10/05/17 13:40 Ur Phencyclidine Scrn Presumptive negative 10/05/17 13:40 Ur Amphetamines Screen Presumptive negative 10/05/17 13:40 U Benzodiazepines Scrn Presumptive positive 10/05/17 13:40 Urine Cocaine Screen Presumptive negative 10/05/17 13:40 U Marijuana (THC) Screen Presumptive negative 10/05/17 13:40 Drugs of Abuse Note Disclamer 10/05/17 13:40 Plasma/Serum Alcohol < 0.01 % (0-0.07) 10/05/17 06:40
[2017-10-11] MEDS: PROzac PO SCH (18:28)
[2017-10-11] MEDS: LOVENOX SUB-Q SCH (22:16)
[2017-10-12 05:41] LABS: BUN/Creatinine Ratio 15; Blood Urea Nitrogen 9 mg/dL (7-17); Calcium 8.5 mg/dL (8.4-10.2); Hemolysis Index 4
[2017-10-12] MEDS ORDERED: K-DUR PO ONE (07:00)
[2017-10-12] MEDS: BABY ASPIRIN PO SCH (09:37)
[2017-10-12] MEDS: PROTONIX PO SCH (09:37)
[2017-10-12] MEDS: PROzac PO SCH (09:37)
--- NOTE | 2017-10-12 14:07 | Progress Note ---
Assessment and Plan Assessment and plan: This is a 57-year-old obese white female with a history of anxiety depression and alcohol abuse sent from outside psych facility with strokelike symptoms ( left-sided weakness ) and uncontrolled blood pressure Possible TIA - CVA workup was negative - Likely worsening of previous CVA due to hypertensive urgency h/o Depression and anxiety - consulted psych, placed on 1013 with sitter - Meds were adjusted by psych HTN, controlled - Blood pressure is low and I hold all the medications Alcohol abuse - monitor for withdrawal - placed on protocol Hypokalemia - Repleted Hypernatremia - Advised to increase water intake - Will monitor h/o CVA - cont aspirin, statin - We'll place on GI prophylaxis to avoid stress ulcer - Place on DVT prophylaxis Disposition: medically cleared for discharge. . History Interval history: Patient was seen and evaluated this morning, patient was calm and cooprative. Hospitalist Physical - Physical exam Narrative exam: Not in cardiopulmonary distress. The patient is morbidly obese. Vital signs as documented. Head exam is unremarkable. No scleral icterus . Neck is without jugular venous distension, thyromegaly, or carotid bruits. Lungs are clear to auscultation. Cardiac exam reveals regular rate and Rhythm. First and second heart sounds normal. No murmurs, rubs or gallops. Abdominal exam reveals normal bowel sounds, no masses, no organomegaly and no aortic enlargement. Extremities are nonedematous and both femoral and pedal pulses are normal. ARMORED TRANSPORT SERVICE MANAGER: Alert and oriented 3. No focal weakness. Psychiatric: patient was calm and cooperative. No SI. - Constitutional Vitals: Temp Pulse Resp BP Pulse Ox 97.5 F L 58 L 16 104/47 92 10/12/17 05:00 10/12/17 05:00 10/12/17 05:00 10/12/17 05:00 10/12/17 05:00 Results - Labs CBC & Chem 7: 10/05/17 06:40 10/12/17 04:34 Labs: Laboratory Last Values WBC 8.4 K/mm3 (4.5-11.0) 10/05/17 06:40 RBC 4.68 M/mm3 (3.65-5.03) 10/05/17 06:40 Hgb 16.1 gm/dl (10.1-14.3) H 10/05/17 06:40 Hct 48.7 % (30.3-42.9) H 10/05/17 06:40 MCV 104 fl (79-97) H 10/05/17 06:40 MCH 34 pg (28-32) H 10/05/17 06:40 MCHC 33 % (30-34) 10/05/17 06:40 RDW 16.2 % (13.2-15.2) H 10/05/17 06:40 Plt Count 137 K/mm3 (140-440) L 10/05/17 06:40 Add Manual Diff Complete 10/05/17 06:40 Total Counted 100 10/05/17 06:40 Seg Neuts % (Manual) 70.0 % (40.0-70.0) 10/05/17 06:40 Band Neutrophils % 1.0 % 10/05/17 06:40 Lymphocytes % (Manual) 10.0 % (13.4-35.0) L 10/05/17 06:40 Reactive Lymphs % (Man) 0 % 10/05/17 06:40 Monocytes % (Manual) 19.0 % (0.0-7.3) H 10/05/17 06:40 Eosinophils % (Manual) 0 % (0.0-4.3) 10/05/17 06:40 Basophils % (Manual) 0 % (0.0-1.8) 10/05/17 06:40 Metamyelocytes % 0 % 10/05/17 06:40 Myelocytes % 0 % 10/05/17 06:40 Promyelocytes % 0 % 10/05/17 06:40 Blast Cells % 0 % 10/05/17 06:40 Nucleated RBC % Not Reportable 10/05/17 06:40 Seg Neutrophils # Man 5.9 K/mm3 (1.8-7.7) 10/05/17 06:40 Band Neutrophils # 0.1 K/mm3 10/05/17 06:40 Lymphocytes # (Manual) 0.8 K/mm3 (1.2-5.4) L 10/05/17 06:40 Abs React Lymphs (Man) 0.0 K/mm3 10/05/17 06:40 Monocytes # (Manual) 1.6 K/mm3 (0.0-0.8) H 10/05/17 06:40 Eosinophils # (Manual) 0.0 K/mm3 (0.0-0.4) 10/05/17 06:40 Basophils # (Manual) 0.0 K/mm3 (0.0-0.1) 10/05/17 06:40 Metamyelocytes # 0.0 K/mm3 10/05/17 06:40 Myelocytes # 0.0 K/mm3 10/05/17 06:40 Promyelocytes # 0.0 K/mm3 10/05/17 06:40 Blast Cells # 0.0 K/mm3 10/05/17 06:40 WBC Morphology Not Reportable 10/05/17 06:40 Hypersegmented Neuts Not Reportable 10/05/17 06:40 Hyposegmented Neuts Not Reportable 10/05/17 06:40 Hypogranular Neuts Not Reportable 10/05/17 06:40 Smudge Cells Not Reportable 10/05/17 06:40 Toxic Granulation Not Reportable 10/05/17 06:40 Toxic Vacuolation Not Reportable 10/05/17 06:40 Dohle Bodies Not Reportable 10/05/17 06:40 Pelger-Huet Anomaly Not Reportable 10/05/17 06:40 Elia Rods Not Reportable 10/05/17 06:40 Platelet Estimate Consistent w auto 10/05/17 06:40 Clumped Platelets Not Reportable 10/05/17 06:40 Plt Clumps, EDTA Not Reportable 10/05/17 06:40 Large Platelets Not Reportable 10/05/17 06:40 Giant Platelets Not Reportable 10/05/17 06:40 Platelet Satelliting Not Reportable 10/05/17 06:40 Plt Morphology Comment Not Reportable 10/05/17 06:40 RBC Morphology Not Reportable 10/05/17 06:40 Dimorphic RBCs Not Reportable 10/05/17 06:40 Polychromasia Not Reportable 10/05/17 06:40 Hypochromasia Not Reportable 10/05/17 06:40 Poikilocytosis Not Reportable 10/05/17 06:40 Anisocytosis 1+ 10/05/17 06:40 Microcytosis Not Reportable 10/05/17 06:40 Macrocytosis Not Reportable 10/05/17 06:40 Spherocytes Not Reportable 10/05/17 06:40 Pappenheimer Bodies Not Reportable 10/05/17 06:40 Sickle Cells Not Reportable 10/05/17 06:40 Target Cells Not Reportable 10/05/17 06:40 Tear Drop Cells Not Reportable 10/05/17 06:40 Ovalocytes Not Reportable 10/05/17 06:40 Helmet Cells Not Reportable 10/05/17 06:40 [place] Bodies Not Reportable 10/05/17 06:40 [place] Rings Not Reportable 10/05/17 06:40 [place] Cells Not Reportable 10/05/17 06:40 Bite Cells Not Reportable 10/05/17 06:40 Crenated Cell Not Reportable 10/05/17 06:40 Elliptocytes Not Reportable 10/05/17 06:40 Acanthocytes (Spur) Not Reportable 10/05/17 06:40 Rouleaux Not Reportable 10/05/17 06:40 Hemoglobin C Crystals Not Reportable 10/05/17 06:40 Schistocytes Not Reportable 10/05/17 06:40 Malaria parasites Not Reportable 10/05/17 06:40 Rusty Bodies Not Reportable 10/05/17 06:40 Hem Pathologist Commnt No 10/05/17 06:40 PT 12.7 Sec. (12.2-14.9) 10/05/17 06:40 INR 0.91 (0.87-1.13) 10/05/17 06:40 APTT 38.4 Sec. (24.2-36.6) H 10/05/17 06:40 Thrombin Time 15.3 Sec. (15.1-19.6) 10/05/17 06:40 Sodium 151 mmol/L (137-145) H D 10/12/17 04:34 Potassium 3.2 mmol/L (3.6-5.0) L 10/12/17 04:34 Chloride 106.4 mmol/L (98-107) 10/12/17 04:34 Carbon Dioxide 25 mmol/L (22-30) 10/12/17 04:34 Anion Gap 23 mmol/L 10/12/17 04:34 BUN 9 mg/dL (7-17) 10/12/17 04:34 Creatinine 0.6 mg/dL (0.7-1.2) L 10/12/17 04:34 Estimated GFR > 60 ml/min 10/12/17 04:34 BUN/Creatinine Ratio 15 % 10/12/17 04:34 Glucose 111 mg/dL (65-100) H 10/12/17 04:34 POC Glucose 92 (70-105) 10/05/17 07:01 Hemoglobin A1c 4.9 % (4-6) 10/06/17 06:34 Calcium 8.5 mg/dL (8.4-10.2) 10/12/17 04:34 Total Bilirubin 0.60 mg/dL (0.1-1.2) 10/05/17 06:40 Direct Bilirubin < 0.2 mg/dL (0-0.2) 10/05/17 06:40 AST 61 units/L (5-40) H 10/05/17 06:40 ALT 60 units/L (7-56) H 10/05/17 06:40 Alkaline Phosphatase 55 units/L (35-129) 10/05/17 06:40 Total Creatine Kinase 45 units/L (30-135) 10/05/17 06:40 CK-MB (CK-2) 1.9 ng/mL (0.0-4.0) 10/05/17 06:40 CK-MB (CK-2) Rel Index 4.2 (0-4) H 10/05/17 06:40 Troponin T < 0.010 ng/mL (0.00-0.029) 10/05/17 06:40 Total Protein 7.0 g/dL (6.3-8.2) 10/05/17 06:40 Albumin 4.0 g/dL (3.9-5) 10/05/17 06:40 Albumin/Globulin Ratio 1.3 % 10/05/17 06:40 Triglycerides 129 mg/dL (2-149) 10/06/17 06:37 Cholesterol 204 mg/dL (50-199) H 10/06/17 06:37 LDL Cholesterol Direct 144 mg/dL (50-130) H 10/06/17 06:37 HDL Cholesterol 38 mg/dL (40-59) L 10/06/17 06:37 Cholesterol/HDL Ratio 5.36 % 10/06/17 06:37 Urine Color Yellow (Yellow) 10/05/17 13:47 Urine Turbidity Clear (Clear) 10/05/17 13:47 Urine pH 5.0 (5.0-7.0) 10/05/17 13:47 Ur Specific [place] 1.026 (1.003-1.030) 10/05/17 13:47 Urine Protein 30 mg/dl mg/dL (Negative) 10/05/17 13:47 Urine Glucose (UA) Neg mg/dL (Negative) 10/05/17 13:47 Urine Ketones Tr mg/dL (Negative) 10/05/17 13:47 Urine Blood Neg (Negative) 10/05/17 13:47 Urine Nitrite Neg (Negative) 10/05/17 13:47 Urine Bilirubin Neg (Negative) 10/05/17 13:47 Urine Urobilinogen < 2.0 mg/dL (<2.0) 10/05/17 13:47 Ur Leukocyte Esterase Neg (Negative) 10/05/17 13:47 Urine WBC (Auto) 6.0 /HPF (0.0-6.0) 10/05/17 13:47 Urine RBC (Auto) 11.0 /HPF (0.0-6.0) 10/05/17 13:47 U Epithel Cells (Auto) 8.0 /HPF (0-13.0) 10/05/17 13:47 Urine Bacteria (Auto) 1+ /HPF (Negative) 10/05/17 13:47 Urine Mucus Few /HPF 10/05/17 13:47 Urine Opiates Screen Presumptive negative 10/05/17 13:40 Urine Methadone Screen Presumptive negative 10/05/17 13:40 Ur Barbiturates Screen Presumptive negative 10/05/17 13:40 Ur Phencyclidine Scrn Presumptive negative 10/05/17 13:40 Ur Amphetamines Screen Presumptive negative 10/05/17 13:40 U Benzodiazepines Scrn Presumptive positive 10/05/17 13:40 Urine Cocaine Screen Presumptive negative 10/05/17 13:40 U Marijuana (THC) Screen Presumptive negative 10/05/17 13:40 Drugs of Abuse Note Disclamer 10/05/17 13:40 Plasma/Serum Alcohol < 0.01 % (0-0.07) 10/05/17 06:40
--- NOTE | 2017-10-12 16:42 | Progress Note ---
Subjective - Reason for Consult Consult date: 10/12/17 Reason for consult: Psychiatric Follow- up Evaluation - Chief Complaint Chief complaint: "I'm feeling wonderful." Keesha is a 57 y.o. white female who presents from [facility] for left sided weakness. Today the patient is calm, cooperative, and anxious during the assessment. Patient has expressed that she is ready for discharge. She states " I'm feeling wonderful. I need to get out of here, go get my wallet from my sister's house, and get some new glasses. I'm excited to get out of here." Patient verbalizes that she has a plan to follow-up with a therapist on an outpatient basis once she is discharged. She continues to minimize symptoms related to admission. She reports medication compliance. She denies side effects. Mental Status Exam - Vital signs Last Vital Signs Temp 98.4 F 10/12/17 08:19 Pulse 89 10/12/17 08:19 Resp 20 10/12/17 08:19 BP 166/91 10/12/17 08:19 Pulse Ox 95 10/12/17 08:19 - Exam Narrative exam: Mental Status Exam: Appearance: Casually dressed-hospital gown Attitude/Behavior: Cooperative Sensorium: Clear Orientation: Alert and oriented 4 (person, place, time, date, situation) Psychomotor & Musculoskeletal Activity: Within normal limits. Sitting up in bed Speech: Normal rate and tone Mood: Anxious, depressed-less Affect: Congruent to mood Thought Process: Tangential, circumstantial Thought Content: Paranoid-less Perception: Patient denies Memory: Intact Insight: Fair to poor Judgment: Limited Assessment and Plan Impression: MDD, Severe Type. Hx of Alcohol Use DO. Unspecified Psychosis - Additional Dx. Today the patient reports good mood. Appears anxious and less paranoid. Denies suicidal/homicidal ideation and auditory/visual hallucinations. No alcohol withdrawal symptoms noted. Continues to minimize symptoms. DDx: Unspecified Psychosis R/O Bipolar DO Recommendation/Plan: 1. Continue 1013 with placement to inpatient psychiatric services once medically clear. 2. Continue Prozac 20 mg PO Daily for depression and Zyprexa 5 mg PO HS for psychosis. 3. Discussed possible suicidality/medication induced pan with patient reference Prozac. Discussed possible metabolic side effects. 4. Will continue to monitor patient's mood, sleep, appetite, and side effects. 5. Will consider rescinding 1013 if symptoms continue to improve.
[2017-10-12] MEDS: LOVENOX SUB-Q SCH (21:30)
[2017-10-13 05:52] LABS: BUN/Creatinine Ratio 16; Blood Urea Nitrogen 8 mg/dL (7-17); Calcium 8.6 mg/dL (8.4-10.2); Hemolysis Index 6
[2017-10-13] MEDS ORDERED: K-DUR PO NR (07:37)
[2017-10-13] MEDS: PROTONIX PO SCH (10:45)
[2017-10-13] MEDS: BABY ASPIRIN PO SCH (10:45)
[2017-10-13] MEDS: PROzac PO SCH (10:45)
--- NOTE | 2017-10-13 12:11 | Discharge Summary ---
Providers - Providers Date of Admission: 10/05/17 08:52 Attending physician: CYNDEE KATHLEEN MD 10/05/17 Consult to Physician [CONS] Routine Comment: LEFT MESSAGE AT EXT [id number] Consulting Provider: RYENALDO KEATING Physician Instructions: Reason For Exam: cva 10/05/17 14:46 Consult to Mental Health [CONS] Routine Reason For Exam: psychosis Place consult to:: mental [facility] Notified:: y Was contact made?: Yes Primary care physician: JULIO BREEN Hospitalization Reason for admission: Bipolar disorder, focal neurologic deficit (psychogenic) Condition: Stable Disposition: DC-01 TO HOME OR SELFCARE Time spent for discharge: 31 minutes - Discharge Diagnoses (1) Bipolar disorder Status: Acute (2) Focal neurological deficit Status: Acute (3) Neck pain Status: Acute Core Measure Documentation - Palliative Care Palliative Care/ Comfort Measures: Not Applicable - Core Measures Any of the following diagnoses?: history only (CVA) Exam - Physical Exam Narrative exam: Not in cardiopulmonary distress. The patient is morbidly obese. Vital signs as documented. Head exam is unremarkable. No scleral icterus . Neck is without jugular venous distension, thyromegaly, or carotid bruits. Lungs are clear to auscultation. Cardiac exam reveals regular rate and Rhythm. First and second heart sounds normal. No murmurs, rubs or gallops. Abdominal exam reveals normal bowel sounds, no masses, no organomegaly and no aortic enlargement. Extremities are nonedematous and both femoral and pedal pulses are normal. MILITARY NURSE: Alert and oriented 3. No focal weakness. Psychiatric: patient was calm and cooperative. No SI. - Constitutional Vitals: Temp Pulse Resp BP Pulse Ox 97.8 F 77 20 146/77 95 10/13/17 08:18 10/13/17 08:18 10/13/17 08:18 10/13/17 08:18 10/13/17 08:18 Plan Activity: no restrictions Weight Bearing Status: Full Weight Bearing Diet: low cholesterol, low salt Additional Instructions: Patient said she will schedule O/P psych. She has the information with her Follow up with: JULIO BREEN MD [Primary Care Provider] - 7 Days Prescriptions: AtorvaSTATin [Lipitor] 40 mg PO QHS #30 tablet Metoprolol [Lopressor TAB] 25 mg PO BID #60 tablet
--- NOTE | 2017-10-13 13:45 | Progress Note ---
Assessment and Plan Assessment and plan: This is a 57-year-old obese white female with a history of anxiety depression and alcohol abuse sent from outside psych facility with strokelike symptoms ( left-sided weakness ) and uncontrolled blood pressure Possible TIA - CVA workup was negative - Likely worsening of previous CVA due to hypertensive urgency h/o Depression and anxiety - consulted psych, placed on 1013 with sitter - Meds were adjusted by psych HTN, controlled - Blood pressure is low and I hold all the medications - Patient likely to be discharged with metoprolol and have follow-up with his PCP Alcohol abuse - monitor for withdrawal - placed on protocol Hypokalemia - Repleted Hypernatremia - corrected h/o CVA - cont aspirin, statin - We'll place on GI prophylaxis to avoid stress ulcer - Place on DVT prophylaxis Disposition: medically cleared for discharge. . - Patient Problems (1) Bipolar disorder Current Visit: Yes Status: Acute (2) Focal neurological deficit Current Visit: Yes Status: Acute (3) Neck pain Current Visit: Yes Status: Acute History Interval history: Patient was seen and evaluated this morning, patient was calm and cooprative. Patient wants to go home and psych said they will rescind 1013 Hospitalist Physical - Physical exam Narrative exam: Not in cardiopulmonary distress. The patient is morbidly obese. Vital signs as documented. Head exam is unremarkable. No scleral icterus . Neck is without jugular venous distension, thyromegaly, or carotid bruits. Lungs are clear to auscultation. Cardiac exam reveals regular rate and Rhythm. First and second heart sounds normal. No murmurs, rubs or gallops. Abdominal exam reveals normal bowel sounds, no masses, no organomegaly and no aortic enlargement. Extremities are nonedematous and both femoral and pedal pulses are normal. DUST HANDLER: Alert and oriented 3. No focal weakness. Psychiatric: patient was calm and cooperative. No SI. - Constitutional Vitals: Temp Pulse Resp BP Pulse Ox 97.8 F 77 20 146/77 95 10/13/17 08:18 10/13/17 08:18 10/13/17 08:18 10/13/17 08:18 10/13/17 08:18 Results - Labs CBC & Chem 7: 10/05/17 06:40 10/13/17 04:57 Labs: Laboratory Last Values WBC 8.4 K/mm3 (4.5-11.0) 10/05/17 06:40 RBC 4.68 M/mm3 (3.65-5.03) 10/05/17 06:40 Hgb 16.1 gm/dl (10.1-14.3) H 10/05/17 06:40 Hct 48.7 % (30.3-42.9) H 10/05/17 06:40 MCV 104 fl (79-97) H 10/05/17 06:40 MCH 34 pg (28-32) H 10/05/17 06:40 MCHC 33 % (30-34) 10/05/17 06:40 RDW 16.2 % (13.2-15.2) H 10/05/17 06:40 Plt Count 137 K/mm3 (140-440) L 10/05/17 06:40 Add Manual Diff Complete 10/05/17 06:40 Total Counted 100 10/05/17 06:40 Seg Neuts % (Manual) 70.0 % (40.0-70.0) 10/05/17 06:40 Band Neutrophils % 1.0 % 10/05/17 06:40 Lymphocytes % (Manual) 10.0 % (13.4-35.0) L 10/05/17 06:40 Reactive Lymphs % (Man) 0 % 10/05/17 06:40 Monocytes % (Manual) 19.0 % (0.0-7.3) H 10/05/17 06:40 Eosinophils % (Manual) 0 % (0.0-4.3) 10/05/17 06:40 Basophils % (Manual) 0 % (0.0-1.8) 10/05/17 06:40 Metamyelocytes % 0 % 10/05/17 06:40 Myelocytes % 0 % 10/05/17 06:40 Promyelocytes % 0 % 10/05/17 06:40 Blast Cells % 0 % 10/05/17 06:40 Nucleated RBC % Not Reportable 10/05/17 06:40 Seg Neutrophils # Man 5.9 K/mm3 (1.8-7.7) 10/05/17 06:40 Band Neutrophils # 0.1 K/mm3 10/05/17 06:40 Lymphocytes # (Manual) 0.8 K/mm3 (1.2-5.4) L 10/05/17 06:40 Abs React Lymphs (Man) 0.0 K/mm3 10/05/17 06:40 Monocytes # (Manual) 1.6 K/mm3 (0.0-0.8) H 10/05/17 06:40 Eosinophils # (Manual) 0.0 K/mm3 (0.0-0.4) 10/05/17 06:40 Basophils # (Manual) 0.0 K/mm3 (0.0-0.1) 10/05/17 06:40 Metamyelocytes # 0.0 K/mm3 10/05/17 06:40 Myelocytes # 0.0 K/mm3 10/05/17 06:40 Promyelocytes # 0.0 K/mm3 10/05/17 06:40 Blast Cells # 0.0 K/mm3 10/05/17 06:40 WBC Morphology Not Reportable 10/05/17 06:40 Hypersegmented Neuts Not Reportable 10/05/17 06:40 Hyposegmented Neuts Not Reportable 10/05/17 06:40 Hypogranular Neuts Not Reportable 10/05/17 06:40 Smudge Cells Not Reportable 10/05/17 06:40 Toxic Granulation Not Reportable 10/05/17 06:40 Toxic Vacuolation Not Reportable 10/05/17 06:40 Dohle Bodies Not Reportable 10/05/17 06:40 Pelger-Huet Anomaly Not Reportable 10/05/17 06:40 Elia Rods Not Reportable 10/05/17 06:40 Platelet Estimate Consistent w auto 10/05/17 06:40 Clumped Platelets Not Reportable 10/05/17 06:40 Plt Clumps, EDTA Not Reportable 10/05/17 06:40 Large Platelets Not Reportable 10/05/17 06:40 Giant Platelets Not Reportable 10/05/17 06:40 Platelet Satelliting Not Reportable 10/05/17 06:40 Plt Morphology Comment Not Reportable 10/05/17 06:40 RBC Morphology Not Reportable 10/05/17 06:40 Dimorphic RBCs Not Reportable 10/05/17 06:40 Polychromasia Not Reportable 10/05/17 06:40 Hypochromasia Not Reportable 10/05/17 06:40 Poikilocytosis Not Reportable 10/05/17 06:40 Anisocytosis 1+ 10/05/17 06:40 Microcytosis Not Reportable 10/05/17 06:40 Macrocytosis Not Reportable 10/05/17 06:40 Spherocytes Not Reportable 10/05/17 06:40 Pappenheimer Bodies Not Reportable 10/05/17 06:40 Sickle Cells Not Reportable 10/05/17 06:40 Target Cells Not Reportable 10/05/17 06:40 Tear Drop Cells Not Reportable 10/05/17 06:40 Ovalocytes Not Reportable 10/05/17 06:40 Helmet Cells Not Reportable 10/05/17 06:40 [place] Bodies Not Reportable 10/05/17 06:40 [place] Rings Not Reportable 10/05/17 06:40 [place] Cells Not Reportable 10/05/17 06:40 Bite Cells Not Reportable 10/05/17 06:40 Crenated Cell Not Reportable 10/05/17 06:40 Elliptocytes Not Reportable 10/05/17 06:40 Acanthocytes (Spur) Not Reportable 10/05/17 06:40 Rouleaux Not Reportable 10/05/17 06:40 Hemoglobin C Crystals Not Reportable 10/05/17 06:40 Schistocytes Not Reportable 10/05/17 06:40 Malaria parasites Not Reportable 10/05/17 06:40 Rusty Bodies Not Reportable 10/05/17 06:40 Hem Pathologist Commnt No 10/05/17 06:40 PT 12.7 Sec. (12.2-14.9) 10/05/17 06:40 INR 0.91 (0.87-1.13) 10/05/17 06:40 APTT 38.4 Sec. (24.2-36.6) H 10/05/17 06:40 Thrombin Time 15.3 Sec. (15.1-19.6) 10/05/17 06:40 Sodium 143 mmol/L (137-145) D 10/13/17 04:57 Potassium 3.5 mmol/L (3.6-5.0) L 10/13/17 04:57 Chloride 105.9 mmol/L (98-107) 10/13/17 04:57 Carbon Dioxide 26 mmol/L (22-30) 10/13/17 04:57 Anion Gap 15 mmol/L 10/13/17 04:57 BUN 8 mg/dL (7-17) 10/13/17 04:57 Creatinine 0.5 mg/dL (0.7-1.2) L 10/13/17 04:57 Estimated GFR > 60 ml/min 10/13/17 04:57 BUN/Creatinine Ratio 16 % 10/13/17 04:57 Glucose 101 mg/dL (65-100) H 10/13/17 04:57 POC Glucose 92 (70-105) 10/05/17 07:01 Hemoglobin A1c 4.9 % (4-6) 10/06/17 06:34 Calcium 8.6 mg/dL (8.4-10.2) 10/13/17 04:57 Total Bilirubin 0.60 mg/dL (0.1-1.2) 10/05/17 06:40 Direct Bilirubin < 0.2 mg/dL (0-0.2) 10/05/17 06:40 AST 61 units/L (5-40) H 10/05/17 06:40 ALT 60 units/L (7-56) H 10/05/17 06:40 Alkaline Phosphatase 55 units/L (35-129) 10/05/17 06:40 Total Creatine Kinase 45 units/L (30-135) 10/05/17 06:40 CK-MB (CK-2) 1.9 ng/mL (0.0-4.0) 10/05/17 06:40 CK-MB (CK-2) Rel Index 4.2 (0-4) H 10/05/17 06:40 Troponin T < 0.010 ng/mL (0.00-0.029) 10/05/17 06:40 Total Protein 7.0 g/dL (6.3-8.2) 10/05/17 06:40 Albumin 4.0 g/dL (3.9-5) 10/05/17 06:40 Albumin/Globulin Ratio 1.3 % 10/05/17 06:40 Triglycerides 129 mg/dL (2-149) 10/06/17 06:37 Cholesterol 204 mg/dL (50-199) H 10/06/17 06:37 LDL Cholesterol Direct 144 mg/dL (50-130) H 10/06/17 06:37 HDL Cholesterol 38 mg/dL (40-59) L 10/06/17 06:37 Cholesterol/HDL Ratio 5.36 % 10/06/17 06:37 Urine Color Yellow (Yellow) 10/05/17 13:47 Urine Turbidity Clear (Clear) 10/05/17 13:47 Urine pH 5.0 (5.0-7.0) 10/05/17 13:47 Ur Specific [place] 1.026 (1.003-1.030) 10/05/17 13:47 Urine Protein 30 mg/dl mg/dL (Negative) 10/05/17 13:47 Urine Glucose (UA) Neg mg/dL (Negative) 10/05/17 13:47 Urine Ketones Tr mg/dL (Negative) 10/05/17 13:47 Urine Blood Neg (Negative) 10/05/17 13:47 Urine Nitrite Neg (Negative) 10/05/17 13:47 Urine Bilirubin Neg (Negative) 10/05/17 13:47 Urine Urobilinogen < 2.0 mg/dL (<2.0) 10/05/17 13:47 Ur Leukocyte Esterase Neg (Negative) 10/05/17 13:47 Urine WBC (Auto) 6.0 /HPF (0.0-6.0) 10/05/17 13:47 Urine RBC (Auto) 11.0 /HPF (0.0-6.0) 10/05/17 13:47 U Epithel Cells (Auto) 8.0 /HPF (0-13.0) 10/05/17 13:47 Urine Bacteria (Auto) 1+ /HPF (Negative) 10/05/17 13:47 Urine Mucus Few /HPF 10/05/17 13:47 Urine Opiates Screen Presumptive negative 10/05/17 13:40 Urine Methadone Screen Presumptive negative 10/05/17 13:40 Ur Barbiturates Screen Presumptive negative 10/05/17 13:40 Ur Phencyclidine Scrn Presumptive negative 10/05/17 13:40 Ur Amphetamines Screen Presumptive negative 10/05/17 13:40 U Benzodiazepines Scrn Presumptive positive 10/05/17 13:40 Urine Cocaine Screen Presumptive negative 10/05/17 13:40 U Marijuana (THC) Screen Presumptive negative 10/05/17 13:40 Drugs of Abuse Note Disclamer 10/05/17 13:40 Plasma/Serum Alcohol < 0.01 % (0-0.07) 10/05/17 06:40
--- NOTE | 2017-10-13 13:54 | Progress Note ---
Subjective - Reason for Consult Consult date: 10/13/17 Reason for consult: Psychiatry Follow-up - Chief Complaint Chief complaint: "I feel so much better" Keesha is a 57 y.o. white female who presents from [facility] for left sided weakness. Today the patient is calm and cooperative during the assessment. She stated that she has a number of a psychiatrist that she plan to call to set an appt. She stated that she miss her a lot. She is adamant that she has a lot to live for. Per conversation with her son Benjamin Lane at [phone], he stated that he is the patient's support system along with other family members. He stated that he feels safe for his mother to return home once discharged. He stated that he will be the person to pick his mother up from [facility]. Per the staff, the patient have been completing her ADL's with no behavioral disturbances. The patient denies SI/HI's and AVH's. She denies any side effects of her medications. Mental Status Exam - Vital signs Last Vital Signs Temp 97.8 F 10/13/17 08:18 Pulse 77 10/13/17 08:18 Resp 20 10/13/17 08:18 BP 146/77 10/13/17 08:18 Pulse Ox 95 10/13/17 08:18 - Exam Narrative exam: MSE: Appearance: calm, cooperative Behavior: regular eye contact Speech: regular rate and tone Mood: "okay" Affect: congruent to mood Thought Process: linear Thought Content: denies SI/HI's and AVH's Motor Activity: sitting up in bed Cognition: A/O x 3 Insight: appropriate Judgment: appropriate Assessment and Plan Impression: MDD, Severe Type. Hx of Alcohol Use DO. Unspecified Psychosis - Additional Dx. Today the patient is calm during the assessment. The psychosis has resolved. The patient is no threat to self. DDx: R/O Bipolar DO I. This screening and assessment is based on information collected from the following sources: II. SUICIDE RISK SCREENING (within last 30 days): A.) Suicidal thoughts/behaviors: Yes SUICIDE RISK ASSESSMENT III. FACTORS THAT INCREASE RISK: A.) Demographic and Substance Use Factors: No B.) Current/Recent Factors (within past 3 months): Psychosocial/Environmental Factors: The Grieving Process Physical Illness: None Cognitive/Psychological Factors: None C.) Historical Factors: None D.) Diagnostic/Symptom/Treatment Factors: None E.) Acute Risk Factor Severity (DESC; MILD/MOD/SEVERE): Mild Other factors for this individual that increase risk: None IV. FACTORS THAT DECREASE RISK: Resilience/Protective Factors: Patient want to decrease her stress about the of her Other factors for this individual that decrease risk: Patient denies a desire to harm self V. Clinician's Formulation of Risk and Determination of level of Care: This is a 57-year-old female who was hospitalized for R/O CVA (Stroke Protocol) . The patient was transferred from [facility]. The patient wrapped a cord around her neck twice on this admission. She stated that she was freaking out and stressed about her current situation. After a couple days of seeing the patient, she stated that her actions was not her. She stated that she want to seek outpatient psy services to see a psychiatrist and have sessions with a therapist. Since day 3 of her admission, the patient has consistently denied the desire to harm herself. Additionally, she has become insightful about how to better address her current issues. Patient is not impaired by substance. She is able to take care of her ADLs and is not at imminent risk of harm to self or others. Consequently, it is the opinion of the treatment team that the patient is at low risk of suicide and does not meet criteria to continue an involuntary psychiatric hold. Estimation of Imminent Risk: Low due to the above explanation. Determination of Level of Care based on Suicide Risk: Outpatient follow-up. Narrative description of clinical reasoning. (This must be completed on all patients): . Plan and Interventions based on Suicide Risk: This patient will likely be stepped down to an outpatient mental health center in the community upon discharge and follow-up within 7 days of her discharge from the hospital. VII. Discharge/After Hours Support Plan: Patient can return back to the ER, call 911 or crisis line if symptoms of depression, anxiety, suicidality return. Recommendation/Plan: The patient's 1013 had and will not be extended. Continue Prozac 20 mg PO Daily for depression and Zyprexa 5 mg PO HS for mood/ psychosis. Discussed possible suicidality/medication induced pan with patient reference Prozac. Discussed possible metabolic side effects of Zyprexa with patient and her sister. Discussed generalized coping skills with patient. Safety contract completed with patient. Patient given outpatient psy services for [facility].
[2017-10-13 15:17] VITALS: BP 152/68
--- NOTE | 2017-10-15 17:18 | Vascular Lab Report ---
CAROTID DUPLEX STUDY: RIGHT PSVEDV CCA PROX:[id number] CCA DIST:[id number] ICA PROX:7021 ICA MID:[id number] ICA [id number] ECA: 103 VERT: 45 16 LEFT PSVEDV CCA PROX:8525 CCA DIST:8629 ICA PROX:8131 ICA MID:6126 ICA DIST:[id number] ECA: 132 VERT: 50 21 REASON FOR EXAM: TIA. COMMENTS ON THE RIGHT: Doppler frequency analysis is consistent with 16 to 49 percent diameter reduction of the internal carotid artery. A small amount of plaque is seen. The common carotid artery is patent. The external carotid artery is patent. The vertebral artery has antegrade flow. COMMENTS ON THE LEFT: Doppler frequency analysis is consistent with 16 to 49 percent diameter reduction of the internal carotid artery. A small amount of plaque is seen. The common carotid artery is patent. The external carotid artery is patent. The vertebral artery has antegrade flow. IMPRESSION: Less than 50% diameter reduction in the internal carotid arteries bilaterally. Consider repeat carotid artery duplex in 12 months.
== END 2017-10-13 17:30 | disposition home or self-care (01) | DRG 69 ==
LOC: ED 05:24 → 4A 08:52 → 3A 10-10 17:16
PROVIDERS: ADMIT Internal Medicine; ATTEND Internal Medicine
DX: G45.9 Transient cerebral ischemic attack, unspecified (principal); F32.2 Major depressive disorder, single episode, severe without psychotic features; E87.0 Hyperosmolality and hypernatremia; J44.9 Chronic obstructive pulmonary disease, unspecified; F41.9 Anxiety disorder, unspecified; Z60.2 Problems related to living alone; F10.10 Alcohol abuse, uncomplicated; E87.6 Hypokalemia; Z88.6 Allergy status to analgesic agent; Z86.73 Personal history of transient ischemic attack (TIA), and cerebral infarction without residual deficits; Z87.891 Personal history of nicotine dependence; Z83.3 Family history of diabetes mellitus
CPT/HCPCS: 36415; 70450; 70544; 70551; 71045; 80048; 80061; 80074; 80307; 80320; 81001; 82550; 82553; 82962; 83036; 84484; 85007; 85025; 85610; 85670; 85730; 93005; 93010; 93306; 93880; 94760; A9270-GY; G0480; G8996-GN; G8997-GN; G8998-GN; J0360; J1650; J2060; J3486